=== PATIENT | male | born 1970 | race African-American/Black ===

== ENCOUNTER 2018-05-04 10:22 | Inpatient (IN) ==
[2018-05-04 11:18] LABS: Apearance,Urine CLOUDY (Clear); Bacteria,Urine Many /HPF (Few); Bilirubin,Urine Negative (Negative); Blood, Urine Small mg/dL (Negative); Glucose,Urine (UA) Negative (Negative); Ketones,Urine Negative (Negative); Mucus,Urine Occasional /LPF (Occasional); Nitrite,Urine Positive (Negative); Protein,Urine 30 MG/DL; RBC,Urine 4 /HPF (0-4); Squamous Epithelial Cell,Urine Occasional /HPF (0-10); Urine Color Amber (Yellow); Urine Specific Gravity 1.017 (1.001-1.035); Urine Urobilinogen < 2.0 EU/DL (0.2-1.0); WBC,Urine 159 /HPF (0-6)
[2018-05-04] MEDS ORDERED: PIPERACILLIN/TAZOBACTAM 3,375 MG in SODIUM CHLORIDE 0.9% 100 ML IV STA (13:01)
[2018-05-04] MEDS ORDERED: PIPERACILLIN/TAZOBACTAM 3,375 MG VIAL IV ONE (13:13)
[2018-05-04 13:32] LABS: Basophils % 0.2 % (0.0-0.8); Hematocrit 42.5 VOL% (42.0-52.0); Hemoglobin 14.3 GM/DL (14.0-18.0); Immature Granulocytes % 0.5 %; Immature Granulocytes Absolute 0.07 #; Lymphocytes # 1.4 10*3/uL (1.4-4.0); Lymphocytes % 9.5 % (21.2-54.2); Mean Corpuscular HGB Conc 33.6 GM/DL (32-36); Mean Corpuscular Hemoglobin 30 PG (27-34); Mean Corpuscular Volume 88.5 FL (87-102); Mean Platelet Volume 12.1 FL (9.6-12.0); Monocytes # 1.5 10*3/uL (0.11-0.8); Monocytes % 10.7 % (1.7-12.7); Neutrophils # 11.4 10*3/uL (1.4-7.4); Neutrophils % 79.1 % (38.7-73.9); Platelet Count 107 T/CUMM (130-400); White Blood Count 14.4 T/CUMM (4-12)
[2018-05-04 13:52] LABS: Albumin 3.1 G/DL (3.4-5.0); Bilirubin,Total 0.8 MG/DL (0.2-1.0); Calcium 8.1 MG/DL (8.5-10.1); Osmolality,Calculated 268.2 MOS/KG (273-304); Potassium 3.9 MMOL/L (3.5-5.1); Total Protein 6.9 G/DL (6.4-8.3)
[2018-05-04] MEDS ORDERED: guaiFENesin/DM ER 600-30 MG TABLET PO PRN (14:24)
[2018-05-04] MEDS ORDERED: diphenhydrAMINE CAP 25 MG CAPSULE PO PRN (14:24)
[2018-05-04] MEDS ORDERED: ONDANSETRON 4 MG/2 ML VIAL IV PRN (14:24)
[2018-05-04] MEDS ORDERED: SODIUM CHLORIDE 0.9% 2,950 ML IV ONE ×2 (14:28→14:45)
[2018-05-04] MEDS ORDERED: LEVOFLOXACIN INJ 500 MG in PREMIX 1 EACH IV SCH (14:28)
[2018-05-04] MEDS ORDERED: SODIUM CHLORIDE 0.9% 1,000 ML IV SCH (14:30)
[2018-05-04 14:37] LABS: Sedimentation Rate-Westergren 23 MM/HR (0-15)
[2018-05-04 15:46] LABS: Thyroid Stimulating Hormone 0.799 uIU/ml (0.358-3.74)
[2018-05-04 16:16] LABS: INR 1.2; Partial Thromboplastin Time 33.8 SECS (0-40)
[2018-05-04] MEDS: ACETAMINOPHEN 325 MG TABLET PO PRN (17:41)
[2018-05-04] MEDS: GENTAMICIN INJ 420 MG in SODIUM CHLORIDE 0.9% 100 ML IV SCH (18:47)
[2018-05-04] MEDS: SODIUM CHLORIDE 0.9% 1,000 ML IV SCH (19:02)
[2018-05-04] MEDS ORDERED: hydrOXYzine HCL 25 MG TABLET PO PRN (20:25)
[2018-05-04] MEDS ORDERED: ONDANSETRON ODT 4 MG TABLET PO PRN ×2 (20:25)
[2018-05-04] MEDS: PIPERACILLIN/TAZOBACTAM 3,375 MG in SODIUM CHLORIDE 0.9% 100 ML IV SCH (20:58)
[2018-05-04] MEDS: DOCUSATE SODIUM 100 MG CAPSULE PO SCH (20:59)
[2018-05-04] MEDS ORDERED: SULINDAC 200 MG TABLET PO SCH ×2 (21:00)
[2018-05-04] MEDS: METOPROLOL SUCCINATE XL 50 MG TABLET PO SCH (21:00)
[2018-05-04] MEDS: BACLOFEN 10 MG TABLET PO SCH ×2 (21:00→21:01)
[2018-05-04] MEDS: traMADol 50 MG TABLET PO SCH (21:00)
[2018-05-04] MEDS: DIAZEPAM 5 MG TABLET PO SCH (21:00)
[2018-05-04] MEDS: GABAPENTIN 300 MG CAPSULE PO SCH (21:00)
[2018-05-04] MEDS: LOVASTATIN 20 MG TABLET PO SCH (21:00)
[2018-05-04] MEDS ORDERED: [UNRECOGNIZED DRUG - OTHER] PO SCH (21:00)
[2018-05-04] MEDS: MULTIVITAMIN (CENTRUM) TABLET PO SCH (21:01)
[2018-05-04] MEDS: QUEtiapine 100 MG TABLET PO SCH (21:01)
[2018-05-04] MEDS: SERTRALINE 100 MG TABLET PO SCH (21:01)
[2018-05-05] MEDS: PRAZOSIN 1 MG CAPSULE PO SCH ×2 (01:02→21:28)
[2018-05-05 05:46] LABS: Basophils % 0.3 % (0.0-0.8); Hematocrit 40.1 VOL% (42.0-52.0); Hemoglobin 13.3 GM/DL (14.0-18.0); Immature Granulocytes % 0.5 %; Immature Granulocytes Absolute 0.06 #; Lymphocytes # 1.2 10*3/uL (1.4-4.0); Lymphocytes % 10.4 % (21.2-54.2); Mean Corpuscular HGB Conc 33.2 GM/DL (32-36); Mean Corpuscular Hemoglobin 30 PG (27-34); Mean Corpuscular Volume 89.5 FL (87-102); Mean Platelet Volume 12.2 FL (9.6-12.0); Monocytes # 1.7 10*3/uL (0.11-0.8); Neutrophils # 8.9 10*3/uL (1.4-7.4); Neutrophils % 74.8 % (38.7-73.9); Red Blood Count 4.48 MC/CUMM (3.8-5.5); White Blood Count 11.8 T/CUMM (4-12)
[2018-05-05 05:51] LABS: Platelet Count 99 T/CUMM (130-400)
[2018-05-05] MEDS: PIPERACILLIN/TAZOBACTAM 3,375 MG in SODIUM CHLORIDE 0.9% 100 ML IV SCH ×3 (05:55→21:32)
[2018-05-05] MEDS: SODIUM CHLORIDE 0.9% 1,000 ML IV SCH ×2 (06:03→14:33)
[2018-05-05 06:16] LABS: Albumin 2.8 G/DL (3.4-5.0); Bilirubin,Total 0.8 MG/DL (0.2-1.0); Calcium 7.8 MG/DL (8.5-10.1); Osmolality,Calculated 276.4 MOS/KG (273-304); Potassium 3.6 MMOL/L (3.5-5.1); Risk Ratio 2.93; Total Protein 6.5 G/DL (6.4-8.3)
[2018-05-05] MEDS: oxyCODONE/ACETAMINOPHEN 5-325 MG TABLET PO PRN (06:40)
[2018-05-05] MEDS: DOCUSATE SODIUM 100 MG CAPSULE PO SCH ×2 (09:58→21:30)
[2018-05-05] MEDS: GABAPENTIN 300 MG CAPSULE PO SCH ×4 (09:58→21:29)
[2018-05-05] MEDS: DIAZEPAM 5 MG TABLET PO SCH ×2 (09:58→21:30)
[2018-05-05] MEDS: buPROPion SR 150 MG TABLET PO SCH (09:59)
[2018-05-05] MEDS: LORATADINE 10 MG TABLET PO SCH (09:59)
[2018-05-05] MEDS: BACLOFEN 10 MG TABLET PO SCH ×4 (09:59→21:28)
[2018-05-05] MEDS: traMADol 50 MG TABLET PO SCH ×2 (09:59→21:31)
[2018-05-05] MEDS: PANTOPRAZOLE 40 MG TABLET PO SCH (10:00)
[2018-05-05] MEDS: PSYLLIUM POWDER 3.7 GM/PACK PO SCH (10:00)
[2018-05-05] MEDS: SODIUM CHLORIDE 0.45% 1,000 ML IV SCH (17:51)
[2018-05-05] MEDS: GENTAMICIN INJ 420 MG in SODIUM CHLORIDE 0.9% 100 ML IV SCH (17:52)
[2018-05-05] MEDS: LOVASTATIN 20 MG TABLET PO SCH (21:30)
[2018-05-05] MEDS: METOPROLOL SUCCINATE XL 50 MG TABLET PO SCH (21:31)
[2018-05-05] MEDS: SERTRALINE 100 MG TABLET PO SCH (21:31)
[2018-05-05] MEDS: QUEtiapine 100 MG TABLET PO SCH (21:31)
[2018-05-05] MEDS: MULTIVITAMIN (CENTRUM) TABLET PO SCH (21:33)
[2018-05-06] MEDS: PIPERACILLIN/TAZOBACTAM 3,375 MG in SODIUM CHLORIDE 0.9% 100 ML IV SCH ×2 (04:55→13:22)
[2018-05-06 05:51] LABS: Basophils % 0.4 % (0.0-0.8); Eosinophils # 0.1 10*3/uL (0.0-0.87); Eosinophils % 0.6 % (0.00-10.9); Hematocrit 38.7 VOL% (42.0-52.0); Hemoglobin 13.2 GM/DL (14.0-18.0); Immature Granulocytes % 0.4 %; Immature Granulocytes Absolute 0.03 #; Lymphocytes # 1.3 10*3/uL (1.4-4.0); Lymphocytes % 15.7 % (21.2-54.2); Mean Corpuscular HGB Conc 34.1 GM/DL (32-36); Mean Corpuscular Hemoglobin 30 PG (27-34); Mean Corpuscular Volume 87.2 FL (87-102); Mean Platelet Volume 12.3 FL (9.6-12.0); Monocytes # 1.3 10*3/uL (0.11-0.8); Monocytes % 15.7 % (1.7-12.7); Neutrophils # 5.4 10*3/uL (1.4-7.4); Neutrophils % 67.2 % (38.7-73.9); Platelet Count 95 T/CUMM (130-400); Red Blood Count 4.44 MC/CUMM (3.8-5.5); Red Cell Distribution Width 13.9 % (9.3-17.3)
[2018-05-06 06:07] LABS: Osmolality,Calculated 274.4 MOS/KG (273-304); Potassium 3.6 MMOL/L (3.5-5.1)
[2018-05-06 06:29] LABS: Band Neutrophils 1 % (0-10); Eosinophils 1 % (0-10); Hypochromasia 1+; Lymphocytes 16 % (20-55); Microcytosis Slight; Platelet Estimate Decreased; Segmented Neutrophils 63 % (50-85); Total Cells Counted 100
[2018-05-06] MEDS: SODIUM CHLORIDE 0.45% 1,000 ML IV SCH ×2 (08:56→12:00)
[2018-05-06] MEDS: DIAZEPAM 5 MG TABLET PO SCH ×2 (08:57→21:28)
[2018-05-06] MEDS: traMADol 50 MG TABLET PO SCH ×2 (08:57→21:22)
[2018-05-06] MEDS: PANTOPRAZOLE 40 MG TABLET PO SCH (08:57)
[2018-05-06] MEDS: LORATADINE 10 MG TABLET PO SCH (08:58)
[2018-05-06] MEDS: BACLOFEN 10 MG TABLET PO SCH ×4 (08:58→21:21)
[2018-05-06] MEDS: buPROPion SR 150 MG TABLET PO SCH (08:58)
[2018-05-06] MEDS: DOCUSATE SODIUM 100 MG CAPSULE PO SCH ×2 (08:58→21:20)
[2018-05-06] MEDS: GABAPENTIN 300 MG CAPSULE PO SCH ×4 (08:58→21:14)
[2018-05-06] MEDS: PSYLLIUM POWDER 3.7 GM/PACK PO SCH (08:58)
[2018-05-06] MEDS: cefTRIAXone 1,000 MG in SYRINGE 1 EACH IV SCH (13:25)
[2018-05-06] MEDS: oxyCODONE/ACETAMINOPHEN 5-325 MG TABLET PO PRN (17:00)
[2018-05-06] MEDS: METOPROLOL SUCCINATE XL 50 MG TABLET PO SCH ×2 (17:00→18:04)
[2018-05-06] MEDS: MULTIVITAMIN (CENTRUM) TABLET PO SCH (21:13)
[2018-05-06] MEDS: SERTRALINE 100 MG TABLET PO SCH (21:19)
[2018-05-06] MEDS: PRAZOSIN 1 MG CAPSULE PO SCH (21:20)
[2018-05-06] MEDS: LOVASTATIN 20 MG TABLET PO SCH (21:21)
[2018-05-06] MEDS: QUEtiapine 100 MG TABLET PO SCH (21:21)
[2018-05-07] MEDS: SODIUM CHLORIDE 0.45% 1,000 ML IV SCH (02:54)
[2018-05-07] MEDS: ACETAMINOPHEN 325 MG TABLET PO PRN (06:33)
[2018-05-07 07:07] LABS: Apearance,Urine CLEAR (Clear); Bilirubin,Urine Negative (Negative); Blood, Urine Small mg/dL (Negative); Glucose,Urine (UA) Negative (Negative); Ketones,Urine Negative (Negative); Nitrite,Urine Negative (Negative); Protein,Urine Negative; Urine Color Straw (Yellow); Urine Specific Gravity 1.004 (1.001-1.035); Urine Urobilinogen < 2.0 EU/DL (0.2-1.0); WBC,Urine 1 /HPF (0-6)
[2018-05-07 07:47] VITALS: BP 145/89
[2018-05-07] MEDS: BACLOFEN 10 MG TABLET PO SCH ×2 (09:03→12:44)
[2018-05-07] MEDS: buPROPion SR 150 MG TABLET PO SCH (09:04)
[2018-05-07] MEDS: DIAZEPAM 5 MG TABLET PO SCH (09:04)
[2018-05-07] MEDS: GABAPENTIN 300 MG CAPSULE PO SCH ×2 (09:04→12:44)
[2018-05-07] MEDS: DOCUSATE SODIUM 100 MG CAPSULE PO SCH (09:04)
[2018-05-07] MEDS: PANTOPRAZOLE 40 MG TABLET PO SCH (09:04)
[2018-05-07] MEDS: LORATADINE 10 MG TABLET PO SCH (09:05)
[2018-05-07] MEDS: traMADol 50 MG TABLET PO SCH (09:05)
[2018-05-07] MEDS: PSYLLIUM POWDER 3.7 GM/PACK PO SCH (10:26)
[2018-05-07] MEDS: oxyCODONE/ACETAMINOPHEN 5-325 MG TABLET PO PRN (10:36)
[2018-05-07] MEDS ORDERED: SODIUM PHOSPHATE ENEMA 133 ML BOTTLE RECTAL ONE (11:29)
[2018-05-07] MEDS: cefTRIAXone 1,000 MG in SYRINGE 1 EACH IV SCH (14:42)
== END 2018-05-07 16:16 | disposition home health service (06) | DRG 689 ==
LOC: EDUNIT# → EDBD → N.ED 10:22 → SUATTDRO 14:18 → N.EDINP 14:18 → N.5E 15:41
PROVIDERS: ADMIT Internal Medicine Infectious Disease; ATTEND Internal Medicine

== ENCOUNTER 2021-08-27 15:18 | Inpatient (IN) ==
[2021-08-27 16:39] LABS: Basophils % 0.2 % (0.0-0.8); Eosinophils # 0.1 10*3/uL (0.0-0.87); Eosinophils % 0.6 % (0.00-10.9); Hematocrit 40.3 VOL% (42.0-52.0); Hemoglobin 12.8 GM/DL (14.0-18.0); Immature Granulocytes % 0.5 %; Immature Granulocytes Absolute 0.05 #; Lymphocytes # 0.8 10*3/uL (1.4-4.0); Mean Corpuscular HGB Conc 31.8 GM/DL (32-36); Neutrophils % 81.7 % (38.7-73.9); Platelet Count 166 T/CUMM (130-400); Red Blood Count 4.58 MC/CUMM (3.8-5.5); Red Cell Distribution Width 14.2 % (9.3-17.3); White Blood Count 9.5 T/CUMM (4-12)
[2021-08-27 16:45] LABS: Bacteria,Urine Moderate /HPF (Few); Bilirubin,Urine Negative (Negative); Blood, Urine Small mg/dL (Negative); Glucose,Urine (UA) Negative (Negative); Ketones,Urine Negative (Negative); Mucus,Urine Occasional /LPF (Occasional); Nitrite,Urine Negative (Negative); Protein,Urine Negative; RBC,Urine 7 /HPF (0-4); Squamous Epithelial Cell,Urine Occasional /HPF (0-10); Urine Appearance CLOUDY (Clear); Urine Color Yellow (Yellow); Urine Specific Gravity 1.003 (1.001-1.035); Urine Urobilinogen < 2.0 EU/DL (0.2-1.0)
[2021-08-27 16:53] LABS: Albumin 2.6 G/DL (3.4-5.0); Bilirubin,Total 0.6 MG/DL (0.20-1.00); Calcium 8.2 MG/DL (8.5-10.1); Osmolality,Calculated 280.4 MOS/KG (273-304); Potassium 3.3 MMOL/L (3.5-5.1); Total Protein 6.8 G/DL (6.4-8.2)
[2021-08-27] MEDS ORDERED: cefTRIAXone 1,000 MG in SODIUM CHLORIDE 0.9% 100 ML IV STA (17:58)
[2021-08-27] MEDS ORDERED: MORPHINE 2 MG/1 ML SYRINGE IV PRN (19:02)
[2021-08-27] MEDS ORDERED: ZALEPLON 5 MG CAPSULE PO PRN (19:02)
[2021-08-27] MEDS ORDERED: DEXTROSE 50% 25 GM/50 ML VIAL IV PRN (19:02)
[2021-08-27] MEDS ORDERED: GLUCAGON 1 MG VIAL IM PRN (19:02)
[2021-08-27] MEDS ORDERED: DOCUSATE SODIUM 100 MG CAPSULE PO PRN (19:02)
[2021-08-27] MEDS ORDERED: hydrALAZINE 20 MG/1 ML VIAL IV PRN (19:06)
[2021-08-27] MEDS ORDERED: POTASSIUM CHLORIDE 20 MEQ TABLET PO ONE (19:09)
[2021-08-27] MEDS: SODIUM CHLORIDE 0.9% 1,000 ML IV SCH (21:00)
[2021-08-27] MEDS: AZITHROMYCIN INJ 500 MG in SODIUM CHLORIDE 0.9% 250 ML IV SCH (21:00)
[2021-08-27] MEDS: ENOXAPARIN 40 MG/0.4 ML SYRINGE SUBCUT SCH (21:04)
[2021-08-27] MEDS: ACETAMINOPHEN/CODEINE 300-30 MG TABLET PO PRN (23:53)
[2021-08-28 01:09] LABS: Basophils % 0.1 % (0.0-0.8); Eosinophils % 0.2 % (0.00-10.9); Hematocrit 41.5 VOL% (42.0-52.0); Immature Granulocytes % 0.7 %; Immature Granulocytes Absolute 0.06 #; Lymphocytes # 0.3 10*3/uL (1.4-4.0); Lymphocytes % 3.9 % (21.2-54.2); Mean Corpuscular HGB Conc 31.3 GM/DL (32-36); Mean Corpuscular Volume 89.4 FL (87-102); Mean Platelet Volume 11.2 FL (9.6-12.0); Monocytes % 8.8 % (1.7-12.7); Neutrophils % 86.3 % (38.7-73.9); Platelet Count 135 T/CUMM (130-400); Red Blood Count 4.64 MC/CUMM (3.8-5.5); Red Cell Distribution Width 14.4 % (9.3-17.3); White Blood Count 8.2 T/CUMM (4-12)
[2021-08-28 01:31] LABS: Albumin 2.7 G/DL (3.4-5.0); Calcium 8.8 MG/DL (8.5-10.1); Osmolality,Calculated 276.7 MOS/KG (273-304); Potassium 3.7 MMOL/L (3.5-5.1); Risk Ratio 3.18; Total Protein 7.7 G/DL (6.4-8.2); VLDL Cholesterol 17.6 MG/DL
[2021-08-28] MEDS: ACETAMINOPHEN 325 MG TABLET PO PRN ×3 (03:24→19:20)
[2021-08-28 04:23] LABS: Band Neutrophils 5 % (0-10); Eosinophils 1 % (0-10); Lymphocytes 2 % (20-55); Segmented Neutrophils 85 % (50-85); Total Cells Counted 100
[2021-08-28 04:24] LABS: Hypochromasia 1+; Microcytosis 1+
[2021-08-28 04:25] LABS: Platelet Estimate Adequate
[2021-08-28] MEDS: PANTOPRAZOLE 40 MG TABLET PO SCH (08:57)
[2021-08-28] MEDS: ONDANSETRON 4 MG/2 ML VIAL IV PRN (09:05)
[2021-08-28] MEDS: SODIUM CHLORIDE 0.9% 1,000 ML IV SCH (10:30)
[2021-08-28] MEDS ORDERED: SODIUM PHOSPHATE ENEMA 133 ML BOTTLE RECTAL ONE ×2 (13:30→14:30)
[2021-08-28] MEDS: DIAZEPAM 5 MG TABLET PO SCH ×2 (14:40→21:42)
[2021-08-28] MEDS: DIVALPROEX ER 250 MG TABLET PO SCH ×2 (14:40→21:41)
[2021-08-28] MEDS: BACLOFEN 10 MG TABLET PO SCH ×3 (14:41→21:42)
[2021-08-28] MEDS: OXYBUTYNIN XL 10 MG TABLET PO SCH (14:43)
[2021-08-28] MEDS: DULoxetine 30 MG CAPSULE PO SCH (14:43)
[2021-08-28] MEDS: GABAPENTIN 300 MG CAPSULE PO SCH ×3 (14:44→21:41)
[2021-08-28] MEDS: ENOXAPARIN 40 MG/0.4 ML SYRINGE SUBCUT SCH (18:45)
[2021-08-28] MEDS: AZITHROMYCIN INJ 500 MG in SODIUM CHLORIDE 0.9% 250 ML IV SCH (18:45)
[2021-08-28] MEDS ORDERED: cefTRIAXone 1,000 MG in SODIUM CHLORIDE 0.9% 100 ML IV SCH (19:00)
[2021-08-28] MEDS: DOCUSATE SODIUM 100 MG CAPSULE PO SCH (21:42)
[2021-08-28] MEDS: SIMVASTATIN 10 MG TABLET PO SCH (21:42)
[2021-08-28] MEDS: PIPERACILLIN/TAZOBACTAM 3,375 MG in SODIUM CHLORIDE 0.9% 100 ML IV SCH (21:55)
[2021-08-28] MEDS: ACETAMINOPHEN/CODEINE 300-30 MG TABLET PO PRN (22:30)
[2021-08-28] MEDS: LURASIDONE 120 MG PO SCH (22:38)
[2021-08-29] MEDS: PIPERACILLIN/TAZOBACTAM 3,375 MG in SODIUM CHLORIDE 0.9% 100 ML IV SCH ×3 (04:49→21:39)
[2021-08-29] MEDS: ACETAMINOPHEN 325 MG TABLET PO PRN ×2 (04:51→12:28)
[2021-08-29 06:19] LABS: Basophils % 0.2 % (0.0-0.8); Eosinophils # 0.1 10*3/uL (0.0-0.87); Eosinophils % 0.9 % (0.00-10.9); Hematocrit 36.8 VOL% (42.0-52.0); Hemoglobin 11.8 GM/DL (14.0-18.0); Immature Granulocytes % 0.5 %; Immature Granulocytes Absolute 0.04 #; Lymphocytes # 0.9 10*3/uL (1.4-4.0); Lymphocytes % 10.7 % (21.2-54.2); Mean Corpuscular HGB Conc 32.1 GM/DL (32-36); Mean Corpuscular Volume 90.2 FL (87-102); Monocytes % 13.8 % (1.7-12.7); Neutrophils % 73.9 % (38.7-73.9); Platelet Count 154 T/CUMM (130-400); Red Blood Count 4.08 MC/CUMM (3.8-5.5); Red Cell Distribution Width 14.6 % (9.3-17.3); White Blood Count 8.1 T/CUMM (4-12)
[2021-08-29 06:34] LABS: Calcium 8.4 MG/DL (8.5-10.1); Osmolality,Calculated 273.7 MOS/KG (273-304); Potassium 3.4 MMOL/L (3.5-5.1)
[2021-08-29 06:45] LABS: Band Neutrophils 5 % (0-10); Eosinophils 1 % (0-10); Hypochromasia 1+; Lymphocytes 11 % (20-55); Segmented Neutrophils 64 % (50-85); Total Cells Counted 100
[2021-08-29 06:46] LABS: Microcytosis 1+; Platelet Estimate Adequate
[2021-08-29] MEDS: DIAZEPAM 5 MG TABLET PO SCH ×2 (08:38→21:38)
[2021-08-29] MEDS: PANTOPRAZOLE 40 MG TABLET PO SCH (08:38)
[2021-08-29] MEDS: POTASSIUM CHLORIDE 20 MEQ TABLET PO PRN ×3 (08:38→14:28)
[2021-08-29] MEDS: GABAPENTIN 300 MG CAPSULE PO SCH ×4 (08:38→21:39)
[2021-08-29] MEDS: BACLOFEN 10 MG TABLET PO SCH ×4 (08:38→21:39)
[2021-08-29] MEDS: OXYBUTYNIN XL 10 MG TABLET PO SCH (08:38)
[2021-08-29] MEDS: DIVALPROEX ER 250 MG TABLET PO SCH ×3 (08:38→21:45)
[2021-08-29] MEDS: DULoxetine 30 MG CAPSULE PO SCH (08:38)
[2021-08-29] MEDS: DOCUSATE SODIUM 100 MG CAPSULE PO SCH ×2 (08:39→21:39)
[2021-08-29] MEDS: LORATADINE 10 MG TABLET PO SCH (08:39)
[2021-08-29] MEDS: POLYETHYLENE GLYCOL POWDER 17 GM PACK PO SCH (16:43)
[2021-08-29] MEDS: MAGNESIUM HYDROXIDE SUSP 30 ML UDCUP PO PRN (16:43)
[2021-08-29] MEDS: ACETAMINOPHEN/CODEINE 300-30 MG TABLET PO PRN (21:39)
[2021-08-29] MEDS: SIMVASTATIN 10 MG TABLET PO SCH (21:39)
[2021-08-29] MEDS: ENOXAPARIN 40 MG/0.4 ML SYRINGE SUBCUT SCH (21:45)
[2021-08-29] MEDS: LURASIDONE 120 MG PO SCH (22:57)
[2021-08-30] MEDS: PIPERACILLIN/TAZOBACTAM 3,375 MG in SODIUM CHLORIDE 0.9% 100 ML IV SCH ×2 (04:00→12:22)
[2021-08-30 05:53] LABS: Basophils % 0.3 % (0.0-0.8); Eosinophils # 0.1 10*3/uL (0.0-0.87); Eosinophils % 1.2 % (0.00-10.9); Hematocrit 38.1 VOL% (42.0-52.0); Hemoglobin 12.4 GM/DL (14.0-18.0); Immature Granulocytes % 0.6 %; Immature Granulocytes Absolute 0.06 #; Lymphocytes # 1.3 10*3/uL (1.4-4.0); Lymphocytes % 13.4 % (21.2-54.2); Mean Corpuscular HGB Conc 32.5 GM/DL (32-36); Mean Platelet Volume 10.9 FL (9.6-12.0); Monocytes % 14.1 % (1.7-12.7); Neutrophils % 70.4 % (38.7-73.9); Platelet Count 173 T/CUMM (130-400); Red Blood Count 4.28 MC/CUMM (3.8-5.5); Red Cell Distribution Width 14.6 % (9.3-17.3); White Blood Count 9.5 T/CUMM (4-12)
[2021-08-30 07:07] LABS: Calcium 8.6 MG/DL (8.5-10.1); Osmolality,Calculated 270.8 MOS/KG (273-304); Potassium 3.7 MMOL/L (3.5-5.1)
[2021-08-30] MEDS: LORATADINE 10 MG TABLET PO SCH (09:24)
[2021-08-30] MEDS: DIVALPROEX ER 250 MG TABLET PO SCH ×3 (09:25→21:31)
[2021-08-30] MEDS: DULoxetine 30 MG CAPSULE PO SCH (09:25)
[2021-08-30] MEDS: DIAZEPAM 5 MG TABLET PO SCH ×2 (09:25→21:32)
[2021-08-30] MEDS: PANTOPRAZOLE 40 MG TABLET PO SCH (09:25)
[2021-08-30] MEDS: POLYETHYLENE GLYCOL POWDER 17 GM PACK PO SCH (09:25)
[2021-08-30] MEDS: DOCUSATE SODIUM 100 MG CAPSULE PO SCH ×2 (09:25→21:32)
[2021-08-30] MEDS: OXYBUTYNIN XL 10 MG TABLET PO SCH (09:25)
[2021-08-30] MEDS: GABAPENTIN 300 MG CAPSULE PO SCH ×4 (09:25→21:31)
[2021-08-30] MEDS: BACLOFEN 10 MG TABLET PO SCH ×4 (09:25→21:32)
[2021-08-30] MEDS ORDERED: INFLUENZA VIRUS VACCINE 0.5 ML SYRINGE IM ONE (09:44)
[2021-08-30] MEDS ORDERED: MORPHINE 2 MG/1 ML SYRINGE IV PRN (10:22)
[2021-08-30 11:15] LABS: INR 1.2
[2021-08-30] MEDS: VANCOMYCIN INJ 1,500 MG in SODIUM CHLORIDE 0.9% 500 ML IV SCH (12:22)
[2021-08-30] MEDS: ACETAMINOPHEN 325 MG TABLET PO PRN (17:21)
[2021-08-30] MEDS: SIMVASTATIN 10 MG TABLET PO SCH (21:31)
[2021-08-30] MEDS: LURASIDONE 120 MG PO SCH (21:33)
[2021-08-30 22:01] LABS: Cholesterol Crystals None Seen /LPF
[2021-08-30] MEDS: ACETAMINOPHEN/CODEINE 300-30 MG TABLET PO PRN (22:24)
[2021-08-31] MEDS: PIPERACILLIN/TAZOBACTAM 3,375 MG in SODIUM CHLORIDE 0.9% 100 ML IV SCH ×4 (01:45→20:56)
[2021-08-31 05:16] LABS: Basophils % 0.2 % (0.0-0.8); Eosinophils # 0.1 10*3/uL (0.0-0.87); Eosinophils % 0.8 % (0.00-10.9); Hematocrit 37.7 VOL% (42.0-52.0); Immature Granulocytes % 1.1 %; Lymphocytes # 1.3 10*3/uL (1.4-4.0); Lymphocytes % 13.8 % (21.2-54.2); Mean Corpuscular HGB Conc 31.8 GM/DL (32-36); Mean Corpuscular Volume 87.7 FL (87-102); Mean Platelet Volume 10.8 FL (9.6-12.0); Monocytes % 10.9 % (1.7-12.7); Neutrophils % 73.2 % (38.7-73.9); Platelet Count 181 T/CUMM (130-400); Red Cell Distribution Width 14.6 % (9.3-17.3); White Blood Count 9.1 T/CUMM (4-12)
[2021-08-31 05:39] LABS: Calcium 8.3 MG/DL (8.5-10.1); Osmolality,Calculated 271.7 MOS/KG (273-304); Potassium 3.4 MMOL/L (3.5-5.1)
[2021-08-31] MEDS: VANCOMYCIN INJ 1,500 MG in SODIUM CHLORIDE 0.9% 500 ML IV SCH ×2 (06:21→17:32)
[2021-08-31] MEDS: LORATADINE 10 MG TABLET PO SCH (08:47)
[2021-08-31] MEDS: BACLOFEN 10 MG TABLET PO SCH ×4 (08:47→21:46)
[2021-08-31] MEDS: PANTOPRAZOLE 40 MG TABLET PO SCH (08:47)
[2021-08-31] MEDS: DULoxetine 30 MG CAPSULE PO SCH (08:47)
[2021-08-31] MEDS: DIVALPROEX ER 250 MG TABLET PO SCH ×3 (08:47→21:45)
[2021-08-31] MEDS: OXYBUTYNIN XL 10 MG TABLET PO SCH (08:47)
[2021-08-31] MEDS: DIAZEPAM 5 MG TABLET PO SCH ×2 (08:47→21:46)
[2021-08-31] MEDS: DOCUSATE SODIUM 100 MG CAPSULE PO SCH ×2 (08:47→21:45)
[2021-08-31] MEDS: GABAPENTIN 300 MG CAPSULE PO SCH ×4 (08:47→21:46)
[2021-08-31] MEDS: MORPHINE 2 MG/1 ML SYRINGE IV PRN (08:48)
[2021-08-31] MEDS: POLYETHYLENE GLYCOL POWDER 17 GM PACK PO SCH (08:48)
[2021-08-31] MEDS: POTASSIUM CHLORIDE 20 MEQ TABLET PO PRN ×2 (12:18→14:00)
[2021-08-31] MEDS: NYSTATIN 500,000 UNIT/5 ML UDCUP SWISH/SWAL SCH ×3 (14:10→21:44)
[2021-08-31] MEDS: ACETAMINOPHEN 325 MG TABLET PO PRN (15:47)
[2021-08-31] MEDS: ONDANSETRON 4 MG/2 ML VIAL IV PRN (21:00)
[2021-08-31] MEDS: MAGNESIUM HYDROXIDE SUSP 30 ML UDCUP PO PRN (21:44)
[2021-08-31] MEDS: SIMVASTATIN 10 MG TABLET PO SCH (21:45)
[2021-09-01] MEDS: LURASIDONE 120 MG PO SCH ×2 (01:26→21:26)
[2021-09-01] MEDS: ACETAMINOPHEN 325 MG TABLET PO PRN (01:48)
[2021-09-01] MEDS: PIPERACILLIN/TAZOBACTAM 3,375 MG in SODIUM CHLORIDE 0.9% 100 ML IV SCH ×3 (03:00→20:16)
[2021-09-01] MEDS: ONDANSETRON 4 MG/2 ML VIAL IV PRN (04:55)
[2021-09-01] MEDS: VANCOMYCIN INJ 1,500 MG in SODIUM CHLORIDE 0.9% 500 ML IV SCH ×2 (06:30→18:13)
[2021-09-01 06:32] LABS: Basophils # 0.1 10*3/uL (0.0-0.2); Basophils % 0.5 % (0.0-0.8); Eosinophils # 0.1 10*3/uL (0.0-0.87); Eosinophils % 0.5 % (0.00-10.9); Hematocrit 41.6 VOL% (42.0-52.0); Hemoglobin 13.4 GM/DL (14.0-18.0); Immature Granulocytes Absolute 0.26 #; Lymphocytes # 1.5 10*3/uL (1.4-4.0); Lymphocytes % 11.1 % (21.2-54.2); Mean Corpuscular HGB Conc 32.2 GM/DL (32-36); Mean Corpuscular Volume 88.5 FL (87-102); Mean Platelet Volume 10.6 FL (9.6-12.0); Monocytes % 8.1 % (1.7-12.7); Neutrophils % 77.8 % (38.7-73.9); Platelet Count 253 T/CUMM (130-400); Red Cell Distribution Width 14.6 % (9.3-17.3)
[2021-09-01 07:02] LABS: Calcium 8.7 MG/DL (8.5-10.1); Potassium 3.5 MMOL/L (3.5-5.1)
[2021-09-01] MEDS: POLYETHYLENE GLYCOL POWDER 17 GM PACK PO SCH (09:45)
[2021-09-01] MEDS: DIAZEPAM 5 MG TABLET PO SCH ×2 (09:46→21:24)
[2021-09-01] MEDS: NYSTATIN 500,000 UNIT/5 ML UDCUP SWISH/SWAL SCH ×4 (09:46→21:24)
[2021-09-01] MEDS: DIVALPROEX ER 250 MG TABLET PO SCH ×3 (09:46→21:25)
[2021-09-01] MEDS: OXYBUTYNIN XL 10 MG TABLET PO SCH (09:46)
[2021-09-01] MEDS: DULoxetine 30 MG CAPSULE PO SCH (09:46)
[2021-09-01] MEDS: GABAPENTIN 300 MG CAPSULE PO SCH ×4 (09:46→21:25)
[2021-09-01] MEDS: PANTOPRAZOLE 40 MG TABLET PO SCH (09:46)
[2021-09-01] MEDS: BACLOFEN 10 MG TABLET PO SCH ×4 (09:46→21:25)
[2021-09-01] MEDS: DOCUSATE SODIUM 100 MG CAPSULE PO SCH ×2 (09:47→21:25)
[2021-09-01] MEDS: LORATADINE 10 MG TABLET PO SCH (09:47)
[2021-09-01] MEDS ORDERED: FUROSEMIDE 40 MG/4 ML VIAL IV ONE (10:15)
[2021-09-01] MEDS: SIMVASTATIN 10 MG TABLET PO SCH (21:24)
[2021-09-01] MEDS: DOCUSATE RECTAL SCH (22:55)
[2021-09-01] MEDS: POTASSIUM CHLORIDE INJ 30 MEQ in DEXTROSE 5% NACL 0.45% 1,000 ML IV SCH (23:55)
[2021-09-02] MEDS: PIPERACILLIN/TAZOBACTAM 3,375 MG in SODIUM CHLORIDE 0.9% 100 ML IV SCH ×3 (03:04→21:36)
[2021-09-02 04:52] LABS: Basophils % 0.2 % (0.0-0.8); Eosinophils # 0.2 10*3/uL (0.0-0.87); Eosinophils % 1.5 % (0.00-10.9); Hematocrit 37.6 VOL% (42.0-52.0); Hemoglobin 11.7 GM/DL (14.0-18.0); Immature Granulocytes % 1.9 %; Immature Granulocytes Absolute 0.23 #; Lymphocytes # 1.2 10*3/uL (1.4-4.0); Lymphocytes % 9.7 % (21.2-54.2); Mean Corpuscular HGB Conc 31.1 GM/DL (32-36); Mean Corpuscular Volume 90.2 FL (87-102); Mean Platelet Volume 10.4 FL (9.6-12.0); Monocytes % 6.8 % (1.7-12.7); Neutrophils % 79.9 % (38.7-73.9); Platelet Count 235 T/CUMM (130-400); Red Blood Count 4.17 MC/CUMM (3.8-5.5); Red Cell Distribution Width 14.6 % (9.3-17.3); White Blood Count 12.2 T/CUMM (4-12)
[2021-09-02 05:24] LABS: Calcium 8.5 MG/DL (8.5-10.1); Potassium 3.8 MMOL/L (3.5-5.1)
[2021-09-02 05:51] LABS: Osmolality,Calculated 278.5 MOS/KG (273-304)
[2021-09-02] MEDS: VANCOMYCIN INJ 1,500 MG in SODIUM CHLORIDE 0.9% 500 ML IV SCH ×2 (06:51→18:52)
[2021-09-02] MEDS: LORATADINE 10 MG TABLET PO SCH (09:47)
[2021-09-02] MEDS: DOCUSATE SODIUM 100 MG CAPSULE PO SCH ×2 (09:50→21:34)
[2021-09-02] MEDS: NYSTATIN 500,000 UNIT/5 ML UDCUP SWISH/SWAL SCH ×4 (09:51→21:34)
[2021-09-02] MEDS: FUROSEMIDE 40 MG/4 ML VIAL IV SCH ×2 (10:00→10:30)
[2021-09-02] MEDS: DULoxetine 30 MG CAPSULE PO SCH (10:19)
[2021-09-02] MEDS: BACLOFEN 10 MG TABLET PO SCH ×4 (10:21→21:35)
[2021-09-02] MEDS: GABAPENTIN 300 MG CAPSULE PO SCH ×4 (10:21→21:34)
[2021-09-02] MEDS: PANTOPRAZOLE 40 MG TABLET PO SCH (10:21)
[2021-09-02] MEDS: OXYBUTYNIN XL 10 MG TABLET PO SCH (11:11)
[2021-09-02] MEDS: DIVALPROEX ER 250 MG TABLET PO SCH ×3 (11:11→21:35)
[2021-09-02] MEDS: POLYETHYLENE GLYCOL POWDER 17 GM PACK PO SCH (11:12)
[2021-09-02] MEDS: DIAZEPAM 5 MG TABLET PO SCH ×2 (11:12→21:35)
[2021-09-02] MEDS: ONDANSETRON 4 MG/2 ML VIAL IV PRN (11:28)
[2021-09-02] MEDS: MORPHINE 2 MG/1 ML SYRINGE IV PRN ×2 (11:43→14:28)
[2021-09-02] MEDS: LURASIDONE 120 MG PO SCH (21:36)
[2021-09-02] MEDS: SIMVASTATIN 10 MG TABLET PO SCH (21:36)
[2021-09-03] MEDS: PIPERACILLIN/TAZOBACTAM 3,375 MG in SODIUM CHLORIDE 0.9% 100 ML IV SCH ×3 (03:38→20:33)
[2021-09-03 05:31] LABS: Basophils # 0.1 10*3/uL (0.0-0.2); Basophils % 0.6 % (0.0-0.8); Eosinophils # 0.2 10*3/uL (0.0-0.87); Eosinophils % 2.3 % (0.00-10.9); Hematocrit 40.6 VOL% (42.0-52.0); Hemoglobin 12.7 GM/DL (14.0-18.0); Immature Granulocytes % 1.6 %; Immature Granulocytes Absolute 0.14 #; Lymphocytes # 0.8 10*3/uL (1.4-4.0); Lymphocytes % 8.5 % (21.2-54.2); Mean Corpuscular HGB Conc 31.3 GM/DL (32-36); Mean Corpuscular Volume 91.6 FL (87-102); Mean Platelet Volume 10.4 FL (9.6-12.0); Monocytes % 6.5 % (1.7-12.7); Neutrophils % 80.5 % (38.7-73.9); Platelet Count 231 T/CUMM (130-400); Red Blood Count 4.43 MC/CUMM (3.8-5.5); Red Cell Distribution Width 14.4 % (9.3-17.3); White Blood Count 8.9 T/CUMM (4-12)
[2021-09-03 05:48] LABS: Calcium 8.6 MG/DL (8.5-10.1); Osmolality,Calculated 280.3 MOS/KG (273-304); Potassium 4.2 MMOL/L (3.5-5.1)
[2021-09-03] MEDS: POTASSIUM CHLORIDE INJ 30 MEQ in DEXTROSE 5% NACL 0.45% 1,000 ML IV SCH ×2 (06:04→16:12)
[2021-09-03] MEDS: VANCOMYCIN INJ 1,500 MG in SODIUM CHLORIDE 0.9% 500 ML IV SCH ×2 (06:59→18:05)
[2021-09-03] MEDS: LORATADINE 10 MG TABLET PO SCH (08:32)
[2021-09-03] MEDS: DIVALPROEX ER 250 MG TABLET PO SCH ×3 (08:32→20:34)
[2021-09-03] MEDS: OXYBUTYNIN XL 10 MG TABLET PO SCH (08:32)
[2021-09-03] MEDS: DULoxetine 30 MG CAPSULE PO SCH (08:32)
[2021-09-03] MEDS: DOCUSATE SODIUM 100 MG/10 ML UDCUP PO SCH ×2 (08:32→20:33)
[2021-09-03] MEDS: DIAZEPAM 5 MG TABLET PO SCH ×2 (08:33→20:35)
[2021-09-03] MEDS: GABAPENTIN 300 MG CAPSULE PO SCH ×4 (08:33→20:35)
[2021-09-03] MEDS: BACLOFEN 10 MG TABLET PO SCH ×4 (08:33→20:35)
[2021-09-03] MEDS: FUROSEMIDE 40 MG/4 ML VIAL IV SCH (08:33)
[2021-09-03] MEDS: POLYETHYLENE GLYCOL POWDER 17 GM PACK PO SCH (08:33)
[2021-09-03] MEDS: NYSTATIN 500,000 UNIT/5 ML UDCUP SWISH/SWAL SCH ×4 (08:33→20:33)
[2021-09-03] MEDS: PANTOPRAZOLE 40 MG TABLET PO SCH (08:33)
[2021-09-03] MEDS: SIMVASTATIN 10 MG TABLET PO SCH (20:33)
[2021-09-03] MEDS: LURASIDONE 120 MG PO SCH (20:37)
[2021-09-04] MEDS: PIPERACILLIN/TAZOBACTAM 3,375 MG in SODIUM CHLORIDE 0.9% 100 ML IV SCH ×3 (03:04→21:44)
[2021-09-04] MEDS: POTASSIUM CHLORIDE INJ 30 MEQ in DEXTROSE 5% NACL 0.45% 1,000 ML IV SCH ×2 (03:07→16:16)
[2021-09-04 05:29] LABS: Basophils % 0.3 % (0.0-0.8); Eosinophils # 0.1 10*3/uL (0.0-0.87); Eosinophils % 1.3 % (0.00-10.9); Hematocrit 36.2 VOL% (42.0-52.0); Hemoglobin 11.4 GM/DL (14.0-18.0); Immature Granulocytes % 1.1 %; Lymphocytes # 0.7 10*3/uL (1.4-4.0); Lymphocytes % 7.5 % (21.2-54.2); Mean Corpuscular HGB Conc 31.5 GM/DL (32-36); Mean Corpuscular Volume 91.2 FL (87-102); Mean Platelet Volume 10.6 FL (9.6-12.0); Monocytes % 6.2 % (1.7-12.7); Neutrophils % 83.6 % (38.7-73.9); Platelet Count 268 T/CUMM (130-400); Red Blood Count 3.97 MC/CUMM (3.8-5.5); Red Cell Distribution Width 14.2 % (9.3-17.3); White Blood Count 9.5 T/CUMM (4-12)
[2021-09-04 05:57] LABS: Calcium 8.4 MG/DL (8.5-10.1); Potassium 3.5 MMOL/L (3.5-5.1)
[2021-09-04] MEDS: VANCOMYCIN INJ 1,500 MG in SODIUM CHLORIDE 0.9% 500 ML IV SCH (06:12)
[2021-09-04] MEDS: FUROSEMIDE 40 MG/4 ML VIAL IV SCH (09:15)
[2021-09-04] MEDS: GABAPENTIN 300 MG CAPSULE PO SCH ×4 (09:16→21:46)
[2021-09-04] MEDS: DULoxetine 30 MG CAPSULE PO SCH (09:16)
[2021-09-04] MEDS: BACLOFEN 10 MG TABLET PO SCH ×4 (09:16→21:46)
[2021-09-04] MEDS: PANTOPRAZOLE 40 MG TABLET PO SCH (09:16)
[2021-09-04] MEDS: OXYBUTYNIN XL 10 MG TABLET PO SCH (09:16)
[2021-09-04] MEDS: DOCUSATE SODIUM 100 MG/10 ML UDCUP PO SCH (09:16)
[2021-09-04] MEDS: DIAZEPAM 5 MG TABLET PO SCH ×2 (09:16→21:47)
[2021-09-04] MEDS: NYSTATIN 500,000 UNIT/5 ML UDCUP SWISH/SWAL SCH ×4 (09:16→21:45)
[2021-09-04] MEDS: POLYETHYLENE GLYCOL POWDER 17 GM PACK PO SCH ×3 (09:16→21:45)
[2021-09-04] MEDS: LORATADINE 10 MG TABLET PO SCH (09:16)
[2021-09-04] MEDS: DIVALPROEX ER 250 MG TABLET PO SCH ×3 (09:16→21:47)
[2021-09-04] MEDS: ONDANSETRON 4 MG/2 ML VIAL IV PRN (09:42)
[2021-09-04] MEDS: DOCUSATE RECTAL SCH (17:45)
[2021-09-04] MEDS: DOCUSATE SODIUM 100 MG CAPSULE PO SCH (21:46)
[2021-09-04] MEDS: SIMVASTATIN 10 MG TABLET PO SCH (21:48)
[2021-09-04] MEDS: POTASSIUM CHLORIDE 20 MEQ TABLET PO PRN (21:51)
[2021-09-04] MEDS: LURASIDONE 120 MG PO SCH (21:52)
[2021-09-05] MEDS: PIPERACILLIN/TAZOBACTAM 3,375 MG in SODIUM CHLORIDE 0.9% 100 ML IV SCH ×3 (05:08→21:35)
[2021-09-05 05:16] LABS: Basophils % 0.4 % (0.0-0.8); Eosinophils # 0.1 10*3/uL (0.0-0.87); Eosinophils % 1.7 % (0.00-10.9); Hematocrit 37.6 VOL% (42.0-52.0); Hemoglobin 11.6 GM/DL (14.0-18.0); Immature Granulocytes % 2.6 %; Lymphocytes # 0.9 10*3/uL (1.4-4.0); Lymphocytes % 11.1 % (21.2-54.2); Mean Corpuscular HGB Conc 30.9 GM/DL (32-36); Mean Corpuscular Volume 91.9 FL (87-102); Mean Platelet Volume 10.2 FL (9.6-12.0); Monocytes % 7.5 % (1.7-12.7); Neutrophils % 76.7 % (38.7-73.9); Platelet Count 290 T/CUMM (130-400); Red Blood Count 4.09 MC/CUMM (3.8-5.5); Red Cell Distribution Width 14.3 % (9.3-17.3); White Blood Count 7.8 T/CUMM (4-12)
[2021-09-05 05:30] LABS: Calcium 8.8 MG/DL (8.5-10.1); Potassium 3.6 MMOL/L (3.5-5.1)
[2021-09-05 06:09] LABS: Osmolality,Calculated 286.7 MOS/KG (273-304)
[2021-09-05] MEDS: POTASSIUM CHLORIDE INJ 30 MEQ in DEXTROSE 5% NACL 0.45% 1,000 ML IV SCH ×2 (06:39→21:46)
[2021-09-05] MEDS: ACETAMINOPHEN 325 MG TABLET PO PRN (08:13)
[2021-09-05] MEDS: POLYETHYLENE GLYCOL POWDER 17 GM PACK PO SCH ×3 (08:13→21:35)
[2021-09-05] MEDS: FUROSEMIDE 40 MG/4 ML VIAL IV SCH (08:13)
[2021-09-05] MEDS: BACLOFEN 10 MG TABLET PO SCH ×4 (08:14→21:33)
[2021-09-05] MEDS: PANTOPRAZOLE 40 MG TABLET PO SCH (08:14)
[2021-09-05] MEDS: NYSTATIN 500,000 UNIT/5 ML UDCUP SWISH/SWAL SCH ×4 (08:14→21:35)
[2021-09-05] MEDS: LINACLOTIDE 145 MCG CAPSULE PO SCH (08:14)
[2021-09-05] MEDS: DOCUSATE SODIUM 100 MG CAPSULE PO SCH ×2 (08:14→21:33)
[2021-09-05] MEDS: LORATADINE 10 MG TABLET PO SCH (08:15)
[2021-09-05] MEDS: GABAPENTIN 300 MG CAPSULE PO SCH ×4 (08:15→21:34)
[2021-09-05] MEDS: DULoxetine 30 MG CAPSULE PO SCH (08:15)
[2021-09-05] MEDS: DIAZEPAM 5 MG TABLET PO SCH ×2 (08:15→21:33)
[2021-09-05] MEDS: DIVALPROEX ER 250 MG TABLET PO SCH ×3 (08:15→21:33)
[2021-09-05] MEDS: OXYBUTYNIN XL 10 MG TABLET PO SCH (08:15)
[2021-09-05] MEDS ORDERED: ENOXAPARIN 40 MG/0.4 ML SYRINGE SUBCUT SCH (10:30)
[2021-09-05] MEDS: SIMVASTATIN 10 MG TABLET PO SCH (21:34)
[2021-09-05] MEDS: LURASIDONE 120 MG PO SCH (21:46)
[2021-09-06] MEDS: LACTULOSE 20 GM/30 ML UDCUP PO SCH ×3 (00:17→14:43)
[2021-09-06] MEDS: PIPERACILLIN/TAZOBACTAM 3,375 MG in SODIUM CHLORIDE 0.9% 100 ML IV SCH ×2 (04:50→21:48)
[2021-09-06 05:33] LABS: Basophils % 0.4 % (0.0-0.8); Eosinophils # 0.1 10*3/uL (0.0-0.87); Eosinophils % 0.6 % (0.00-10.9); Hematocrit 37.7 VOL% (42.0-52.0); Immature Granulocytes % 2.3 %; Immature Granulocytes Absolute 0.24 #; Lymphocytes # 1.2 10*3/uL (1.4-4.0); Lymphocytes % 11.4 % (21.2-54.2); Mean Corpuscular HGB Conc 31.8 GM/DL (32-36); Mean Corpuscular Volume 90.2 FL (87-102); Mean Platelet Volume 10.6 FL (9.6-12.0); Neutrophils % 77.3 % (38.7-73.9); Platelet Count 369 T/CUMM (130-400); Red Blood Count 4.18 MC/CUMM (3.8-5.5); Red Cell Distribution Width 14.3 % (9.3-17.3); White Blood Count 10.2 T/CUMM (4-12)
[2021-09-06 05:59] LABS: Calcium 8.7 MG/DL (8.5-10.1); Osmolality,Calculated 286.7 MOS/KG (273-304); Potassium 3.2 MMOL/L (3.5-5.1)
[2021-09-06] MEDS: BACLOFEN 10 MG TABLET PO SCH ×5 (09:49→21:20)
[2021-09-06] MEDS: OXYBUTYNIN XL 10 MG TABLET PO SCH (09:49)
[2021-09-06] MEDS: DIAZEPAM 5 MG TABLET PO SCH ×2 (09:49→21:19)
[2021-09-06] MEDS: PANTOPRAZOLE 40 MG TABLET PO SCH (09:49)
[2021-09-06] MEDS: DULoxetine 30 MG CAPSULE PO SCH (09:49)
[2021-09-06] MEDS: DIVALPROEX ER 250 MG TABLET PO SCH ×3 (09:49→21:19)
[2021-09-06] MEDS: LORATADINE 10 MG TABLET PO SCH (09:49)
[2021-09-06] MEDS: FUROSEMIDE 40 MG/4 ML VIAL IV SCH (09:50)
[2021-09-06] MEDS: ENOXAPARIN 40 MG/0.4 ML SYRINGE SUBCUT SCH (09:50)
[2021-09-06] MEDS: POTASSIUM CHLORIDE 20 MEQ TABLET PO PRN (09:50)
[2021-09-06] MEDS: POLYETHYLENE GLYCOL POWDER 17 GM PACK PO SCH (09:50)
[2021-09-06] MEDS: NYSTATIN 500,000 UNIT/5 ML UDCUP SWISH/SWAL SCH ×4 (09:50→21:20)
[2021-09-06] MEDS: DOCUSATE SODIUM 100 MG CAPSULE PO SCH (09:50)
[2021-09-06] MEDS: LINACLOTIDE 145 MCG CAPSULE PO SCH (09:51)
[2021-09-06] MEDS: GABAPENTIN 300 MG CAPSULE PO SCH ×4 (10:26→21:20)
[2021-09-06] MEDS ORDERED: POTASSIUM CHLORIDE 20 MEQ TABLET PO ONE (13:15)
[2021-09-06] MEDS: DOCUSATE RECTAL SCH (14:41)
[2021-09-06 19:01] LABS: CDT Result Negative (Negative); CDT Specimen Source STOOL
[2021-09-06] MEDS: SIMVASTATIN 10 MG TABLET PO SCH (21:20)
[2021-09-06] MEDS: LURASIDONE 120 MG PO SCH (21:48)
[2021-09-07] MEDS: PIPERACILLIN/TAZOBACTAM 3,375 MG in SODIUM CHLORIDE 0.9% 100 ML IV SCH ×3 (02:42→17:08)
[2021-09-07] MEDS: POTASSIUM CHLORIDE INJ 30 MEQ in DEXTROSE 5% NACL 0.45% 1,000 ML IV SCH (03:04)
[2021-09-07 05:28] LABS: Basophils % 0.4 % (0.0-0.8); Eosinophils # 0.1 10*3/uL (0.0-0.87); Eosinophils % 0.7 % (0.00-10.9); Hematocrit 39.7 VOL% (42.0-52.0); Hemoglobin 12.6 GM/DL (14.0-18.0); Immature Granulocytes % 2.6 %; Immature Granulocytes Absolute 0.29 #; Lymphocytes # 1.5 10*3/uL (1.4-4.0); Lymphocytes % 13.5 % (21.2-54.2); Mean Corpuscular HGB Conc 31.7 GM/DL (32-36); Mean Corpuscular Volume 89.6 FL (87-102); Mean Platelet Volume 10.3 FL (9.6-12.0); Monocytes % 8.5 % (1.7-12.7); Neutrophils % 74.3 % (38.7-73.9); Platelet Count 404 T/CUMM (130-400); Red Blood Count 4.43 MC/CUMM (3.8-5.5); Red Cell Distribution Width 14.6 % (9.3-17.3); White Blood Count 11.1 T/CUMM (4-12)
[2021-09-07 05:38] LABS: Calcium 8.9 MG/DL (8.5-10.1); Osmolality,Calculated 288.6 MOS/KG (273-304); Potassium 3.5 MMOL/L (3.5-5.1)
[2021-09-07] MEDS: DULoxetine 30 MG CAPSULE PO SCH (10:46)
[2021-09-07] MEDS: DIVALPROEX ER 250 MG TABLET PO SCH ×3 (10:46→20:37)
[2021-09-07] MEDS: GABAPENTIN 300 MG CAPSULE PO SCH ×4 (10:47→20:37)
[2021-09-07] MEDS: OXYBUTYNIN XL 10 MG TABLET PO SCH (10:47)
[2021-09-07] MEDS: PANTOPRAZOLE 40 MG TABLET PO SCH (10:47)
[2021-09-07] MEDS: DIAZEPAM 5 MG TABLET PO SCH ×2 (10:47→20:38)
[2021-09-07] MEDS: LINACLOTIDE 145 MCG CAPSULE PO SCH (10:48)
[2021-09-07] MEDS: BACLOFEN 10 MG TABLET PO SCH ×4 (10:48→20:37)
[2021-09-07] MEDS: LORATADINE 10 MG TABLET PO SCH (10:48)
[2021-09-07] MEDS: ENOXAPARIN 40 MG/0.4 ML SYRINGE SUBCUT SCH (10:49)
[2021-09-07] MEDS: FUROSEMIDE 40 MG/4 ML VIAL IV SCH (10:49)
[2021-09-07] MEDS: NYSTATIN 500,000 UNIT/5 ML UDCUP SWISH/SWAL SCH ×4 (10:50→20:37)
[2021-09-07] MEDS: SIMVASTATIN 10 MG TABLET PO SCH (20:37)
[2021-09-07] MEDS: LURASIDONE 120 MG PO SCH (20:55)
[2021-09-08] MEDS: POTASSIUM CHLORIDE INJ 30 MEQ in DEXTROSE 5% NACL 0.45% 1,000 ML IV SCH (01:27)
[2021-09-08] MEDS: PIPERACILLIN/TAZOBACTAM 3,375 MG in SODIUM CHLORIDE 0.9% 100 ML IV SCH ×2 (02:03→10:16)
[2021-09-08 09:06] LABS: Basophils # 0.1 10*3/uL (0.0-0.2); Basophils % 0.6 % (0.0-0.8); Eosinophils # 0.1 10*3/uL (0.0-0.87); Eosinophils % 1.4 % (0.00-10.9); Hematocrit 39.3 VOL% (42.0-52.0); Hemoglobin 12.6 GM/DL (14.0-18.0); Immature Granulocytes % 2.3 %; Immature Granulocytes Absolute 0.22 #; Lymphocytes # 1.6 10*3/uL (1.4-4.0); Lymphocytes % 16.7 % (21.2-54.2); Mean Corpuscular HGB Conc 32.1 GM/DL (32-36); Mean Corpuscular Volume 89.7 FL (87-102); Mean Platelet Volume 10.2 FL (9.6-12.0); Monocytes % 8.6 % (1.7-12.7); Neutrophils % 70.4 % (38.7-73.9); Platelet Count 421 T/CUMM (130-400); Red Blood Count 4.38 MC/CUMM (3.8-5.5); Red Cell Distribution Width 14.7 % (9.3-17.3); White Blood Count 9.8 T/CUMM (4-12)
[2021-09-08 09:23] LABS: Osmolality,Calculated 285.8 MOS/KG (273-304); Potassium 3.6 MMOL/L (3.5-5.1)
[2021-09-08] MEDS: LINACLOTIDE 145 MCG CAPSULE PO SCH (10:13)
[2021-09-08] MEDS: ENOXAPARIN 40 MG/0.4 ML SYRINGE SUBCUT SCH (10:13)
[2021-09-08] MEDS: DULoxetine 30 MG CAPSULE PO SCH (10:14)
[2021-09-08] MEDS: OXYBUTYNIN XL 10 MG TABLET PO SCH (10:14)
[2021-09-08] MEDS: DIVALPROEX ER 250 MG TABLET PO SCH ×3 (10:14→21:28)
[2021-09-08] MEDS: LORATADINE 10 MG TABLET PO SCH (10:14)
[2021-09-08] MEDS: NYSTATIN 500,000 UNIT/5 ML UDCUP SWISH/SWAL SCH ×4 (10:15→21:28)
[2021-09-08] MEDS: DIAZEPAM 5 MG TABLET PO SCH ×2 (10:15→21:29)
[2021-09-08] MEDS: BACLOFEN 10 MG TABLET PO SCH ×4 (10:15→21:29)
[2021-09-08] MEDS: GABAPENTIN 300 MG CAPSULE PO SCH ×4 (10:15→21:29)
[2021-09-08] MEDS: PANTOPRAZOLE 40 MG TABLET PO SCH (10:15)
[2021-09-08] MEDS: FUROSEMIDE 40 MG/4 ML VIAL IV SCH (10:15)
[2021-09-08] MEDS: DOCUSATE RECTAL SCH (16:38)
[2021-09-08] MEDS: CEFEPIME 2,000 MG in SODIUM CHLORIDE 0.9% 100 ML IV SCH (18:15)
[2021-09-08] MEDS: SIMVASTATIN 10 MG TABLET PO SCH (21:29)
[2021-09-08] MEDS: LURASIDONE 120 MG PO SCH (21:34)
[2021-09-09] MEDS: POTASSIUM CHLORIDE INJ 30 MEQ in DEXTROSE 5% NACL 0.45% 1,000 ML IV SCH ×3 (04:29→22:46)
[2021-09-09 05:21] LABS: Basophils % 0.5 % (0.0-0.8); Eosinophils # 0.1 10*3/uL (0.0-0.87); Eosinophils % 1.5 % (0.00-10.9); Hematocrit 40.1 VOL% (42.0-52.0); Hemoglobin 12.5 GM/DL (14.0-18.0); Immature Granulocytes Absolute 0.22 #; Lymphocytes # 1.6 10*3/uL (1.4-4.0); Lymphocytes % 21.7 % (21.2-54.2); Mean Corpuscular HGB Conc 31.2 GM/DL (32-36); Mean Corpuscular Volume 90.3 FL (87-102); Mean Platelet Volume 10.4 FL (9.6-12.0); Monocytes % 10.1 % (1.7-12.7); Neutrophils % 63.2 % (38.7-73.9); Platelet Count 411 T/CUMM (130-400); Red Blood Count 4.44 MC/CUMM (3.8-5.5); Red Cell Distribution Width 14.6 % (9.3-17.3); White Blood Count 7.3 T/CUMM (4-12)
[2021-09-09 05:48] LABS: Calcium 8.7 MG/DL (8.5-10.1); Osmolality,Calculated 284.1 MOS/KG (273-304); Potassium 3.6 MMOL/L (3.5-5.1)
[2021-09-09] MEDS: CEFEPIME 2,000 MG in SODIUM CHLORIDE 0.9% 100 ML IV SCH ×2 (05:51→19:02)
[2021-09-09] MEDS: DULoxetine 30 MG CAPSULE PO SCH (09:27)
[2021-09-09] MEDS: GABAPENTIN 300 MG CAPSULE PO SCH ×4 (09:28→22:24)
[2021-09-09] MEDS: DIAZEPAM 5 MG TABLET PO SCH ×2 (09:28→22:25)
[2021-09-09] MEDS: BACLOFEN 10 MG TABLET PO SCH ×4 (09:29→22:26)
[2021-09-09] MEDS: NYSTATIN 500,000 UNIT/5 ML UDCUP SWISH/SWAL SCH ×4 (09:33→22:35)
[2021-09-09] MEDS: PANTOPRAZOLE 40 MG TABLET PO SCH (09:33)
[2021-09-09] MEDS: DIVALPROEX ER 250 MG TABLET PO SCH ×3 (09:33→22:23)
[2021-09-09] MEDS: OXYBUTYNIN XL 10 MG TABLET PO SCH (09:33)
[2021-09-09] MEDS: LORATADINE 10 MG TABLET PO SCH (09:33)
[2021-09-09] MEDS: FUROSEMIDE 40 MG/4 ML VIAL IV SCH (09:34)
[2021-09-09] MEDS: LINACLOTIDE 145 MCG CAPSULE PO SCH (09:34)
[2021-09-09] MEDS: ENOXAPARIN 40 MG/0.4 ML SYRINGE SUBCUT SCH (09:35)
[2021-09-09] MEDS: SIMVASTATIN 10 MG TABLET PO SCH (22:28)
[2021-09-09] MEDS: LURASIDONE 120 MG PO SCH (22:30)
[2021-09-10 06:24] LABS: Basophils % 0.4 % (0.0-0.8); Eosinophils # 0.2 10*3/uL (0.0-0.87); Eosinophils % 2.1 % (0.00-10.9); Hematocrit 38.9 VOL% (42.0-52.0); Hemoglobin 11.9 GM/DL (14.0-18.0); Immature Granulocytes % 2.3 %; Immature Granulocytes Absolute 0.19 #; Lymphocytes # 1.6 10*3/uL (1.4-4.0); Lymphocytes % 19.5 % (21.2-54.2); Mean Corpuscular HGB Conc 30.6 GM/DL (32-36); Mean Corpuscular Volume 91.1 FL (87-102); Mean Platelet Volume 10.6 FL (9.6-12.0); Monocytes % 10.6 % (1.7-12.7); Neutrophils % 65.1 % (38.7-73.9); Platelet Count 374 T/CUMM (130-400); Red Blood Count 4.27 MC/CUMM (3.8-5.5); Red Cell Distribution Width 14.7 % (9.3-17.3); White Blood Count 8.1 T/CUMM (4-12)
[2021-09-10] MEDS: CEFEPIME 2,000 MG in SODIUM CHLORIDE 0.9% 100 ML IV SCH ×2 (06:26→17:03)
[2021-09-10 06:43] LABS: Calcium 9.2 MG/DL (8.5-10.1); Osmolality,Calculated 282.3 MOS/KG (273-304); Potassium 4.1 MMOL/L (3.5-5.1)
[2021-09-10] MEDS: ENOXAPARIN 40 MG/0.4 ML SYRINGE SUBCUT SCH (09:01)
[2021-09-10] MEDS: DIAZEPAM 5 MG TABLET PO SCH ×2 (09:01→21:58)
[2021-09-10] MEDS: DIVALPROEX ER 250 MG TABLET PO SCH ×3 (09:01→21:58)
[2021-09-10] MEDS: LINACLOTIDE 145 MCG CAPSULE PO SCH (09:01)
[2021-09-10] MEDS: DULoxetine 30 MG CAPSULE PO SCH (09:01)
[2021-09-10] MEDS: PANTOPRAZOLE 40 MG TABLET PO SCH (09:01)
[2021-09-10] MEDS: BACLOFEN 10 MG TABLET PO SCH ×4 (09:01→21:59)
[2021-09-10] MEDS: FUROSEMIDE 40 MG/4 ML VIAL IV SCH (09:02)
[2021-09-10] MEDS: LORATADINE 10 MG TABLET PO SCH (09:02)
[2021-09-10] MEDS: GABAPENTIN 300 MG CAPSULE PO SCH ×4 (09:02→21:58)
[2021-09-10] MEDS: NYSTATIN 500,000 UNIT/5 ML UDCUP SWISH/SWAL SCH ×4 (09:02→21:59)
[2021-09-10] MEDS: OXYBUTYNIN XL 10 MG TABLET PO SCH (09:06)
[2021-09-10] MEDS: LURASIDONE 120 MG PO SCH (21:59)
[2021-09-10] MEDS: SIMVASTATIN 10 MG TABLET PO SCH (21:59)
[2021-09-11] MEDS: POTASSIUM CHLORIDE INJ 30 MEQ in DEXTROSE 5% NACL 0.45% 1,000 ML IV SCH ×2 (00:39→01:39)
[2021-09-11 05:17] LABS: Basophils % 0.5 % (0.0-0.8); Eosinophils # 0.1 10*3/uL (0.0-0.87); Eosinophils % 1.6 % (0.00-10.9); Hematocrit 39.2 VOL% (42.0-52.0); Hemoglobin 12.1 GM/DL (14.0-18.0); Immature Granulocytes % 1.5 %; Immature Granulocytes Absolute 0.11 #; Lymphocytes # 1.5 10*3/uL (1.4-4.0); Lymphocytes % 20.2 % (21.2-54.2); Mean Corpuscular HGB Conc 30.9 GM/DL (32-36); Mean Corpuscular Volume 92.5 FL (87-102); Mean Platelet Volume 10.4 FL (9.6-12.0); Monocytes % 10.8 % (1.7-12.7); Neutrophils % 65.4 % (38.7-73.9); Platelet Count 340 T/CUMM (130-400); Red Blood Count 4.24 MC/CUMM (3.8-5.5); Red Cell Distribution Width 14.6 % (9.3-17.3); White Blood Count 7.4 T/CUMM (4-12)
[2021-09-11 05:46] LABS: Calcium 9.4 MG/DL (8.5-10.1); Osmolality,Calculated 280.4 MOS/KG (273-304); Potassium 4.2 MMOL/L (3.5-5.1)
[2021-09-11] MEDS: CEFEPIME 2,000 MG in SODIUM CHLORIDE 0.9% 100 ML IV SCH (06:38)
[2021-09-11] MEDS: GABAPENTIN 300 MG CAPSULE PO SCH (08:33)
[2021-09-11] MEDS: PANTOPRAZOLE 40 MG TABLET PO SCH (08:33)
[2021-09-11] MEDS: NYSTATIN 500,000 UNIT/5 ML UDCUP SWISH/SWAL SCH (08:33)
[2021-09-11] MEDS: OXYBUTYNIN XL 10 MG TABLET PO SCH (08:33)
[2021-09-11] MEDS: DIVALPROEX ER 250 MG TABLET PO SCH (08:34)
[2021-09-11] MEDS: DULoxetine 30 MG CAPSULE PO SCH (08:34)
[2021-09-11] MEDS: BACLOFEN 10 MG TABLET PO SCH (08:34)
[2021-09-11] MEDS: DIAZEPAM 5 MG TABLET PO SCH (08:34)
[2021-09-11] MEDS: FUROSEMIDE 40 MG/4 ML VIAL IV SCH (08:35)
[2021-09-11] MEDS: ENOXAPARIN 40 MG/0.4 ML SYRINGE SUBCUT SCH (08:35)
[2021-09-11] MEDS: LINACLOTIDE 145 MCG CAPSULE PO SCH (08:39)
[2021-09-11] MEDS: LORATADINE 10 MG TABLET PO SCH (09:02)
[2021-09-11 16:54] VITALS: BP 109/64
== END 2021-09-11 17:06 | DRG 698 ==
LOC: EDBD → EDUNIT# → SUATTDRO → N.ED 15:18 → N.EDINP 19:00 → SUATTDRO 19:00 → N.EDINP 22:03 → N.3E 22:39
PROVIDERS: ADMIT Nurse Practitioner Family; ATTEND Hospitalist

== ENCOUNTER 2021-12-06 23:11 | Inpatient (IN) ==
[2021-12-06] MEDS ORDERED: ALUM/MAG/SIMETH/LIDO VISC 1:1 30 ML BOTTLE PO STA (23:46)
[2021-12-06] MEDS ORDERED: PANTOPRAZOLE 40 MG VIAL IV STA (23:46)
[2021-12-07 00:54] LABS: Basophils % 0.6 % (0.0-0.8); Eosinophils # 0.2 10*3/uL (0.0-0.87); Eosinophils % 2.2 % (0.00-10.9); Hematocrit 46.4 VOL% (42.0-52.0); Hemoglobin 15.2 GM/DL (14.0-18.0); Immature Granulocytes % 0.1 %; Immature Granulocytes Absolute 0.01 #; Lymphocytes # 1.9 10*3/uL (1.4-4.0); Lymphocytes % 25.6 % (21.2-54.2); Mean Corpuscular HGB Conc 32.8 GM/DL (32-36); Mean Corpuscular Volume 88.4 FL (87-102); Monocytes % 8.4 % (1.7-12.7); Neutrophils % 63.1 % (38.7-73.9); Platelet Count 118 T/CUMM (130-400); Red Blood Count 5.25 MC/CUMM (3.8-5.5); Red Cell Distribution Width 14.8 % (9.3-17.3); White Blood Count 7.2 T/CUMM (4-12)
[2021-12-07 01:08] LABS: PT Patient Result 11.5 SECS (10.5-12.0); Partial Thromboplastin Time 27.6 SECS (23.8-32.1)
[2021-12-07 01:11] LABS: Alanine Aminotransferase 32 U/L (16-61); Albumin 3.5 G/DL (3.4-5.0); Alkaline Phosphatase 125 U/L (45-117); Aspartate Amino Transferase 24 U/L (0-37); Bilirubin,Total < 0.39 MG/DL (0.20-1.00); Blood Urea Nitrogen 14 MG/DL (7-18); Calcium 9.1 MG/DL (8.5-10.1); Carbon Dioxide 31 MMOL/L (21-32); Estimated Glom Filtration Rate 174 ML/MIN; Glucose 109 MG/DL (74-106); Osmolality,Calculated 278.5 MOS/KG (273-304); Potassium 3.6 MMOL/L (3.5-5.1); Sodium 139 MMOL/L (136-145); Total Protein 7.4 G/DL (6.4-8.2)
[2021-12-07 01:12] LABS: Bacteria,Urine Occasional /HPF (Few); Bilirubin,Urine Negative (Negative); Blood, Urine Negative (Negative); Glucose,Urine (UA) Negative (Negative); Ketones,Urine Negative (Negative); Mucus,Urine Occasional /LPF (Occasional); Nitrite,Urine Positive (Negative); Protein,Urine Negative; RBC,Urine 4 /HPF (0-4); Urine Appearance Slightly Hazy (Clear); Urine Color Yellow (Yellow); Urine Specific Gravity 1.011 (1.001-1.035)
[2021-12-07 01:40] LABS: Barbiturates Screen,Urine Negative (Negative); Benzodiazepines Screen,Urine Positive (Negative); Cannabinoid Screen,Urine Negative (Negative); Opiate Screen,Urine Negative (Negative); Phencyclidine Screen,Urine Negative (Negative)
[2021-12-07] MEDS ORDERED: cefTRIAXone 1,000 MG in SODIUM CHLORIDE 0.9% 100 ML IV STA (01:41)
[2021-12-07] MEDS ORDERED: DEXTROSE 50% 25 GM/50 ML SYRINGE IV PRN (03:04)
[2021-12-07] MEDS ORDERED: ONDANSETRON 4 MG/2 ML VIAL IV PRN (03:04)
[2021-12-07] MEDS ORDERED: hydrALAZINE 20 MG/1 ML VIAL IV PRN (03:04)
[2021-12-07] MEDS ORDERED: ACETAMINOPHEN 325 MG TABLET PO PRN (03:04)
[2021-12-07] MEDS ORDERED: GLUCAGON 1 MG VIAL IM PRN (03:04)
[2021-12-07] MEDS: ASPIRIN 325 MG TABLET PO SCH ×2 (05:04→10:06)
[2021-12-07] MEDS: MEROPENEM 500 MG in SODIUM CHLORIDE 0.9% 100 ML IV SCH ×4 (05:05→21:29)
[2021-12-07 05:10] LABS: Basophils % 0.5 % (0.0-0.8); Eosinophils # 0.1 10*3/uL (0.0-0.87); Hematocrit 42.8 VOL% (42.0-52.0); Hemoglobin 13.9 GM/DL (14.0-18.0); Immature Granulocytes % 0.3 %; Immature Granulocytes Absolute 0.02 #; Lymphocytes # 1.6 10*3/uL (1.4-4.0); Lymphocytes % 25.5 % (21.2-54.2); Mean Corpuscular HGB Conc 32.5 GM/DL (32-36); Mean Corpuscular Volume 89.4 FL (87-102); Monocytes % 8.1 % (1.7-12.7); Neutrophils % 63.6 % (38.7-73.9); Platelet Count 110 T/CUMM (130-400); Red Blood Count 4.79 MC/CUMM (3.8-5.5); Red Cell Distribution Width 14.8 % (9.3-17.3); White Blood Count 6.4 T/CUMM (4-12)
[2021-12-07 05:38] LABS: Calcium 8.4 MG/DL (8.5-10.1); Osmolality,Calculated 280.3 MOS/KG (273-304); Risk Ratio 4.22; Thyroid Stimulating Hormone 2.62 uIU/ml (0.358-3.74); VLDL Cholesterol 22.2 MG/DL
[2021-12-07] MEDS ORDERED: PNEUMOCOCCAL VACCINE (13 VALENT) 0.5 ML SYRINGE IM ONE (09:01)
[2021-12-07] MEDS ORDERED: INFLUENZA VIRUS VACCINE 0.5 ML SYRINGE IM ONE (09:01)
[2021-12-07] MEDS: DULoxetine 30 MG CAPSULE PO SCH (10:06)
[2021-12-07] MEDS: DOCUSATE SODIUM 100 MG CAPSULE PO SCH ×2 (10:06→20:20)
[2021-12-07] MEDS: DIAZEPAM 5 MG TABLET PO SCH ×2 (10:06→20:19)
[2021-12-07] MEDS: PANTOPRAZOLE 40 MG TABLET PO SCH (10:06)
[2021-12-07] MEDS: PSYLLIUM POWDER 3.7 GM/PACK PO SCH ×2 (10:26→20:21)
[2021-12-07] MEDS: OXYBUTYNIN XL 10 MG TABLET PO SCH (10:26)
[2021-12-07] MEDS: BACLOFEN 10 MG TABLET PO SCH ×3 (15:00→20:20)
[2021-12-07] MEDS: GABAPENTIN 300 MG CAPSULE PO SCH ×3 (15:00→20:20)
[2021-12-07] MEDS ORDERED: SIMVASTATIN 10 MG TABLET PO SCH (19:00)
[2021-12-07] MEDS: DIVALPROEX ER 250 MG TABLET PO SCH (20:19)
[2021-12-07] MEDS: MELATONIN 3 MG TABLET PO SCH (20:19)
[2021-12-07] MEDS: ATORVASTATIN 40 MG TABLET PO SCH (20:20)
[2021-12-07] MEDS ORDERED: LATUDA 60MG PO SCH (21:00)
[2021-12-08] MEDS: MEROPENEM 500 MG in SODIUM CHLORIDE 0.9% 100 ML IV SCH ×4 (03:24→22:45)
[2021-12-08 04:01] LABS: Basophils % 0.4 % (0.0-0.8); Eosinophils # 0.1 10*3/uL (0.0-0.87); Hematocrit 45.1 VOL% (42.0-52.0); Hemoglobin 14.4 GM/DL (14.0-18.0); Immature Granulocytes % 0.4 %; Immature Granulocytes Absolute 0.03 #; Lymphocytes # 2.3 10*3/uL (1.4-4.0); Lymphocytes % 29.2 % (21.2-54.2); Mean Corpuscular HGB Conc 31.9 GM/DL (32-36); Mean Corpuscular Volume 90.6 FL (87-102); Mean Platelet Volume 12.4 FL (9.6-12.0); Monocytes % 8.9 % (1.7-12.7); Neutrophils % 60.1 % (38.7-73.9); Platelet Count 108 T/CUMM (130-400); Red Blood Count 4.98 MC/CUMM (3.8-5.5); Red Cell Distribution Width 15.1 % (9.3-17.3); White Blood Count 7.8 T/CUMM (4-12)
[2021-12-08 04:16] LABS: Calcium 8.7 MG/DL (8.5-10.1); Osmolality,Calculated 281.3 MOS/KG (273-304); Potassium 3.8 MMOL/L (3.5-5.1)
[2021-12-08] MEDS: DOCUSATE SODIUM 100 MG CAPSULE PO SCH ×2 (09:15→20:37)
[2021-12-08] MEDS: ASPIRIN 325 MG TABLET PO SCH (09:15)
[2021-12-08] MEDS: MULTIVITAMIN (CENTRUM) TABLET PO SCH (09:15)
[2021-12-08] MEDS: DULoxetine 30 MG CAPSULE PO SCH (09:16)
[2021-12-08] MEDS: OXYBUTYNIN XL 10 MG TABLET PO SCH (09:16)
[2021-12-08] MEDS: BACLOFEN 10 MG TABLET PO SCH ×4 (09:16→20:38)
[2021-12-08] MEDS: PSYLLIUM POWDER 3.7 GM/PACK PO SCH ×2 (09:16→20:38)
[2021-12-08] MEDS: DOCUSATE RECTAL SCH (09:16)
[2021-12-08] MEDS: DIAZEPAM 5 MG TABLET PO SCH ×2 (09:17→20:38)
[2021-12-08] MEDS: GABAPENTIN 300 MG CAPSULE PO SCH ×4 (09:17→20:38)
[2021-12-08] MEDS: LORATADINE 10 MG TABLET PO SCH (09:17)
[2021-12-08] MEDS: PANTOPRAZOLE 40 MG TABLET PO SCH (09:17)
[2021-12-08 20:22] LABS: Bacteria,Urine Occasional /HPF (Few); Bilirubin,Urine Negative (Negative); Blood, Urine Negative (Negative); Glucose,Urine (UA) Negative (Negative); Ketones,Urine Negative (Negative); Mucus,Urine Occasional /LPF (Occasional); Nitrite,Urine Negative (Negative); Protein,Urine Negative; RBC,Urine <1 /HPF (0-4); Squamous Epithelial Cell,Urine Occasional /HPF (0-10); Urine Appearance CLEAR (Clear); Urine Color Yellow (Yellow); Urine Specific Gravity 1.012 (1.001-1.035); Urine Urobilinogen < 2.0 EU/DL (<2.0)
[2021-12-08] MEDS: ATORVASTATIN 40 MG TABLET PO SCH (20:38)
[2021-12-08] MEDS: DIVALPROEX ER 250 MG TABLET PO SCH (20:38)
[2021-12-08] MEDS: MELATONIN 3 MG TABLET PO SCH (20:38)
[2021-12-08] MEDS: LATUDA 120 MG PO SCH (20:39)
[2021-12-09] MEDS: MEROPENEM 500 MG in SODIUM CHLORIDE 0.9% 100 ML IV SCH ×4 (04:41→22:03)
[2021-12-09 05:52] LABS: Basophils % 0.4 % (0.0-0.8); Eosinophils # 0.2 10*3/uL (0.0-0.87); Eosinophils % 2.6 % (0.00-10.9); Hematocrit 45.2 VOL% (42.0-52.0); Hemoglobin 14.5 GM/DL (14.0-18.0); Immature Granulocytes % 0.2 %; Immature Granulocytes Absolute 0.02 #; Lymphocytes # 1.8 10*3/uL (1.4-4.0); Lymphocytes % 21.6 % (21.2-54.2); Mean Corpuscular HGB Conc 32.1 GM/DL (32-36); Mean Corpuscular Volume 90.2 FL (87-102); Monocytes % 9.1 % (1.7-12.7); Neutrophils % 66.1 % (38.7-73.9); Platelet Count 118 T/CUMM (130-400); Red Blood Count 5.01 MC/CUMM (3.8-5.5); Red Cell Distribution Width 14.9 % (9.3-17.3); White Blood Count 8.2 T/CUMM (4-12)
[2021-12-09 06:11] LABS: Calcium 8.9 MG/DL (8.5-10.1); Osmolality,Calculated 279.3 MOS/KG (273-304); Potassium 3.7 MMOL/L (3.5-5.1)
[2021-12-09] MEDS: PANTOPRAZOLE 40 MG TABLET PO SCH (09:25)
[2021-12-09] MEDS: DULoxetine 30 MG CAPSULE PO SCH (09:25)
[2021-12-09] MEDS: GABAPENTIN 300 MG CAPSULE PO SCH ×4 (09:26→20:46)
[2021-12-09] MEDS: BACLOFEN 10 MG TABLET PO SCH ×4 (09:26→20:43)
[2021-12-09] MEDS: DIAZEPAM 5 MG TABLET PO SCH ×2 (09:26→20:43)
[2021-12-09] MEDS: MULTIVITAMIN (CENTRUM) TABLET PO SCH (09:26)
[2021-12-09] MEDS: DOCUSATE SODIUM 100 MG CAPSULE PO SCH ×2 (09:26→20:43)
[2021-12-09] MEDS: ASPIRIN EC 81 MG TABLET PO SCH (09:26)
[2021-12-09] MEDS: OXYBUTYNIN XL 10 MG TABLET PO SCH (09:26)
[2021-12-09] MEDS: LORATADINE 10 MG TABLET PO SCH (09:26)
[2021-12-09] MEDS: PSYLLIUM POWDER 3.7 GM/PACK PO SCH ×2 (09:27→20:43)
[2021-12-09] MEDS: DIVALPROEX ER 250 MG TABLET PO SCH (20:43)
[2021-12-09] MEDS: ATORVASTATIN 40 MG TABLET PO SCH (20:43)
[2021-12-09] MEDS: MELATONIN 3 MG TABLET PO SCH (20:43)
[2021-12-09] MEDS: LATUDA 120 MG PO SCH (20:46)
[2021-12-10] MEDS: MEROPENEM 500 MG in SODIUM CHLORIDE 0.9% 100 ML IV SCH ×4 (03:09→22:39)
[2021-12-10 05:53] LABS: Basophils % 0.5 % (0.0-0.8); Eosinophils # 0.2 10*3/uL (0.0-0.87); Eosinophils % 2.3 % (0.00-10.9); Hemoglobin 14.2 GM/DL (14.0-18.0); Immature Granulocytes % 0.5 %; Immature Granulocytes Absolute 0.04 #; Lymphocytes # 1.8 10*3/uL (1.4-4.0); Lymphocytes % 22.4 % (21.2-54.2); Mean Corpuscular HGB Conc 32.3 GM/DL (32-36); Monocytes % 8.7 % (1.7-12.7); Neutrophils % 65.6 % (38.7-73.9); Platelet Count 102 T/CUMM (130-400); Red Blood Count 4.89 MC/CUMM (3.8-5.5); Red Cell Distribution Width 14.7 % (9.3-17.3); White Blood Count 7.9 T/CUMM (4-12)
[2021-12-10 06:21] LABS: Calcium 9.3 MG/DL (8.5-10.1); Osmolality,Calculated 277.4 MOS/KG (273-304); Potassium 3.7 MMOL/L (3.5-5.1)
[2021-12-10] MEDS: DOCUSATE SODIUM 100 MG CAPSULE PO SCH ×2 (08:57→21:13)
[2021-12-10] MEDS: LORATADINE 10 MG TABLET PO SCH (08:58)
[2021-12-10] MEDS: MULTIVITAMIN (CENTRUM) TABLET PO SCH (08:58)
[2021-12-10] MEDS: DULoxetine 30 MG CAPSULE PO SCH (08:58)
[2021-12-10] MEDS: PSYLLIUM POWDER 3.7 GM/PACK PO SCH ×2 (08:58→21:11)
[2021-12-10] MEDS: OXYBUTYNIN XL 10 MG TABLET PO SCH (08:58)
[2021-12-10] MEDS: DIAZEPAM 5 MG TABLET PO SCH ×2 (08:58→21:20)
[2021-12-10] MEDS: GABAPENTIN 300 MG CAPSULE PO SCH ×4 (08:58→21:12)
[2021-12-10] MEDS: PANTOPRAZOLE 40 MG TABLET PO SCH (08:58)
[2021-12-10] MEDS: ASPIRIN EC 81 MG TABLET PO SCH (08:58)
[2021-12-10] MEDS: BACLOFEN 10 MG TABLET PO SCH ×4 (11:18→21:12)
[2021-12-10] MEDS: MELATONIN 3 MG TABLET PO SCH (21:12)
[2021-12-10] MEDS: ATORVASTATIN 40 MG TABLET PO SCH (21:13)
[2021-12-10] MEDS: DIVALPROEX ER 250 MG TABLET PO SCH (21:14)
[2021-12-10] MEDS: LATUDA 120 MG PO SCH (22:39)
[2021-12-11] MEDS: MEROPENEM 500 MG in SODIUM CHLORIDE 0.9% 100 ML IV SCH ×4 (04:43→21:35)
[2021-12-11 05:53] LABS: Basophils % 0.5 % (0.0-0.8); Eosinophils # 0.2 10*3/uL (0.0-0.87); Eosinophils % 3.3 % (0.00-10.9); Hematocrit 43.6 VOL% (42.0-52.0); Hemoglobin 14.2 GM/DL (14.0-18.0); Immature Granulocytes % 0.5 %; Immature Granulocytes Absolute 0.03 #; Lymphocytes # 1.9 10*3/uL (1.4-4.0); Lymphocytes % 30.1 % (21.2-54.2); Mean Corpuscular HGB Conc 32.6 GM/DL (32-36); Mean Corpuscular Volume 89.3 FL (87-102); Mean Platelet Volume 12.6 FL (9.6-12.0); Monocytes % 8.5 % (1.7-12.7); Neutrophils % 57.1 % (38.7-73.9); Platelet Count 110 T/CUMM (130-400); Red Blood Count 4.88 MC/CUMM (3.8-5.5); Red Cell Distribution Width 14.6 % (9.3-17.3); White Blood Count 6.5 T/CUMM (4-12)
[2021-12-11 06:06] LABS: Calcium 8.9 MG/DL (8.5-10.1); Osmolality,Calculated 281.1 MOS/KG (273-304); Potassium 3.8 MMOL/L (3.5-5.1)
[2021-12-11] MEDS: PANTOPRAZOLE 40 MG TABLET PO SCH (10:05)
[2021-12-11] MEDS: BACLOFEN 10 MG TABLET PO SCH ×4 (10:05→21:48)
[2021-12-11] MEDS: GABAPENTIN 300 MG CAPSULE PO SCH ×4 (10:05→21:34)
[2021-12-11] MEDS: DIAZEPAM 5 MG TABLET PO SCH ×2 (10:05→21:35)
[2021-12-11] MEDS: ASPIRIN EC 81 MG TABLET PO SCH (10:05)
[2021-12-11] MEDS: OXYBUTYNIN XL 10 MG TABLET PO SCH (10:05)
[2021-12-11] MEDS: DOCUSATE SODIUM 100 MG CAPSULE PO SCH ×2 (10:05→21:35)
[2021-12-11] MEDS: LORATADINE 10 MG TABLET PO SCH (10:05)
[2021-12-11] MEDS: DULoxetine 30 MG CAPSULE PO SCH (10:05)
[2021-12-11] MEDS: PSYLLIUM POWDER 3.7 GM/PACK PO SCH ×2 (10:05→21:35)
[2021-12-11] MEDS: MULTIVITAMIN (CENTRUM) TABLET PO SCH (10:05)
[2021-12-11] MEDS: DOCUSATE RECTAL SCH (10:49)
[2021-12-11] MEDS: LATUDA 120 MG PO SCH (21:00)
[2021-12-11] MEDS: ATORVASTATIN 40 MG TABLET PO SCH (21:34)
[2021-12-11] MEDS: DIVALPROEX ER 250 MG TABLET PO SCH (21:35)
[2021-12-11] MEDS: MELATONIN 3 MG TABLET PO SCH (21:48)
[2021-12-12] MEDS: MEROPENEM 500 MG in SODIUM CHLORIDE 0.9% 100 ML IV SCH ×4 (04:36→21:04)
[2021-12-12] MEDS: PSYLLIUM POWDER 3.7 GM/PACK PO SCH ×2 (10:27→21:11)
[2021-12-12] MEDS: DIAZEPAM 5 MG TABLET PO SCH ×2 (10:27→21:00)
[2021-12-12] MEDS: MULTIVITAMIN (CENTRUM) TABLET PO SCH (10:28)
[2021-12-12] MEDS: LORATADINE 10 MG TABLET PO SCH (10:28)
[2021-12-12] MEDS: GABAPENTIN 300 MG CAPSULE PO SCH ×4 (10:28→21:00)
[2021-12-12] MEDS: DULoxetine 30 MG CAPSULE PO SCH (10:28)
[2021-12-12] MEDS: BACLOFEN 10 MG TABLET PO SCH ×4 (10:29→21:10)
[2021-12-12] MEDS: OXYBUTYNIN XL 10 MG TABLET PO SCH (10:29)
[2021-12-12] MEDS: ASPIRIN EC 81 MG TABLET PO SCH (10:30)
[2021-12-12] MEDS: PANTOPRAZOLE 40 MG TABLET PO SCH (10:30)
[2021-12-12] MEDS: DOCUSATE SODIUM 100 MG CAPSULE PO SCH ×2 (10:31→21:00)
[2021-12-12] MEDS: DOCUSATE RECTAL SCH (17:15)
[2021-12-12] MEDS: ATORVASTATIN 40 MG TABLET PO SCH (21:00)
[2021-12-12] MEDS: DIVALPROEX ER 250 MG TABLET PO SCH (21:11)
[2021-12-12] MEDS: MELATONIN 3 MG TABLET PO SCH (21:11)
[2021-12-12] MEDS: LATUDA 120 MG PO SCH (21:11)
[2021-12-13] MEDS: MEROPENEM 500 MG in SODIUM CHLORIDE 0.9% 100 ML IV SCH ×4 (03:51→16:34)
[2021-12-13] MEDS: OXYBUTYNIN XL 10 MG TABLET PO SCH (08:46)
[2021-12-13] MEDS: BACLOFEN 10 MG TABLET PO SCH ×2 (08:47→12:48)
[2021-12-13] MEDS: LORATADINE 10 MG TABLET PO SCH (08:47)
[2021-12-13] MEDS: GABAPENTIN 300 MG CAPSULE PO SCH ×2 (08:47→12:48)
[2021-12-13] MEDS: ASPIRIN EC 81 MG TABLET PO SCH (08:47)
[2021-12-13] MEDS: MULTIVITAMIN (CENTRUM) TABLET PO SCH (08:47)
[2021-12-13] MEDS: DOCUSATE SODIUM 100 MG CAPSULE PO SCH (08:47)
[2021-12-13] MEDS: DULoxetine 30 MG CAPSULE PO SCH (08:47)
[2021-12-13] MEDS: PANTOPRAZOLE 40 MG TABLET PO SCH (08:48)
[2021-12-13] MEDS: PSYLLIUM POWDER 3.7 GM/PACK PO SCH (08:54)
[2021-12-13] MEDS: DIAZEPAM 5 MG TABLET PO SCH (08:54)
[2021-12-13] MEDS ORDERED: MAGNESIUM CITRATE 300 ML BOTTLE PO ONE (10:36)
[2021-12-13] MEDS ORDERED: FOSFOMYCIN 3 GM PACK PO ONE (13:00)
[2021-12-13] MEDS: DOCUSATE RECTAL SCH (14:33)
[2021-12-13 16:42] VITALS: BP 119/58
== END 2021-12-13 16:54 | disposition home health service (06) | DRG 698 ==
LOC: EDBD → EDUNIT# → N.ED 23:11 → N.EDINP 12-07 03:04 → SUATTDRO 12-07 03:04 → N.TELES 12-07 06:51
PROVIDERS: ADMIT Internal Medicine; ATTEND Internal Medicine

== ENCOUNTER 2022-03-30 11:27 | Inpatient (IN) ==
[2022-03-30] MEDS ORDERED: SODIUM CHLORIDE 0.9% 1,000 ML IV STA ×2 (11:36→11:55)
[2022-03-30 12:04] LABS: Basophils % 0.2 % (0.0-0.8); Eosinophils % 0.3 % (0.00-10.9); Hematocrit 44.4 VOL% (42.0-52.0); Hemoglobin 14.7 GM/DL (14.0-18.0); Immature Granulocytes % 0.5 %; Immature Granulocytes Absolute 0.07 #; Lymphocytes # 1.5 10*3/uL (1.4-4.0); Lymphocytes % 10.1 % (21.2-54.2); Mean Corpuscular HGB Conc 33.1 GM/DL (32-36); Mean Corpuscular Volume 92.3 FL (87-102); Mean Platelet Volume 13.4 FL (9.6-12.0); Monocytes # 1.1 10*3/uL (0.11-0.8); Monocytes % 7.6 % (1.7-12.7); Neutrophils % 81.3 % (38.7-73.9); Platelet Count 144 T/CUMM (130-400); Red Blood Count 4.81 MC/CUMM (3.8-5.5); Red Cell Distribution Width 14.7 % (9.3-17.3); White Blood Count 14.9 T/CUMM (4-12)
[2022-03-30 12:34] LABS: Alanine Aminotransferase 35 U/L (16-61); Albumin 3.1 G/DL (3.4-5.0); Alkaline Phosphatase 112 U/L (45-117); Aspartate Amino Transferase 28 U/L (0-37); Bilirubin,Total < 0.39 MG/DL (0.20-1.00); Blood Urea Nitrogen 24 MG/DL (7-18); Calcium 9.1 MG/DL (8.5-10.1); Carbon Dioxide 25 MMOL/L (21-32); Chloride 103 MMOL/L (98-107); Estimated Glom Filtration Rate 82 ML/MIN; Glucose 156 MG/DL (74-106); Osmolality,Calculated 276.1 MOS/KG (273-304); Potassium 4.5 MMOL/L (3.5-5.1); Sodium 135 MMOL/L (136-145); Total Protein 7.2 G/DL (6.4-8.2)
[2022-03-30] MEDS ORDERED: cefTRIAXone 1,000 MG in SODIUM CHLORIDE 0.9% 100 ML IV STA (12:58)
[2022-03-30] MEDS ORDERED: ONDANSETRON 4 MG/2 ML VIAL IV PRN (13:53)
[2022-03-30] MEDS ORDERED: DEXTROSE 10% 25 GM/250 ML BAG IV PRN (13:53)
[2022-03-30] MEDS ORDERED: GLUCAGON 1 MG VIAL IM PRN (13:53)
[2022-03-30] MEDS: SODIUM CHLORIDE 0.9% 1,000 ML IV SCH (14:05)
[2022-03-30 14:24] LABS: Mucus,Urine Few /LPF (Occasional); Urine Color Yellow (Yellow)
[2022-03-30 14:25] LABS: Bilirubin,Urine Negative (Negative); Blood, Urine Moderate mg/dL (Negative); Glucose,Urine (UA) Negative (Negative); Ketones,Urine Negative (Negative); Nitrite,Urine Negative (Negative); Protein,Urine 30 mg/dL (Negative); Urine Appearance Cloudy (Clear); Urine Urobilinogen 0.2 eU/dL (<2.0)
[2022-03-30] MEDS: GABAPENTIN 300 MG CAPSULE PO SCH ×2 (17:30→21:11)
[2022-03-30] MEDS: BACLOFEN 10 MG TABLET PO SCH ×2 (17:31→21:10)
[2022-03-30] MEDS: tiZANidine 4 MG TABLET PO SCH ×2 (17:31→21:11)
[2022-03-30] MEDS: HEPARIN 5,000 UNIT/1 ML VIAL SUBCUT SCH (17:39)
[2022-03-30] MEDS: ACETAMINOPHEN 325 MG TABLET PO PRN (17:44)
[2022-03-30] MEDS: MELATONIN 3 MG TABLET PO SCH (21:08)
[2022-03-30] MEDS: DIVALPROEX ER 250 MG TABLET PO SCH (21:09)
[2022-03-30] MEDS: DOCUSATE SODIUM 100 MG CAPSULE PO SCH (21:10)
[2022-03-30] MEDS: SIMVASTATIN 10 MG TABLET PO SCH (21:10)
[2022-03-30] MEDS: DIAZEPAM 5 MG TABLET PO SCH (21:10)
[2022-03-31] MEDS: SODIUM CHLORIDE 0.9% 1,000 ML IV SCH ×3 (00:51→21:40)
[2022-03-31] MEDS: HEPARIN 5,000 UNIT/1 ML VIAL SUBCUT SCH (02:19)
[2022-03-31] MEDS: PANTOPRAZOLE 40 MG TABLET PO SCH (05:45)
[2022-03-31 06:09] LABS: Basophils % 0.2 % (0.0-0.8); Eosinophils # 0.1 10*3/uL (0.0-0.87); Eosinophils % 1.2 % (0.00-10.9); Hematocrit 40.1 VOL% (42.0-52.0); Hemoglobin 12.9 GM/DL (14.0-18.0); Immature Granulocytes % 0.5 %; Immature Granulocytes Absolute 0.04 #; Lymphocytes # 2.2 10*3/uL (1.4-4.0); Lymphocytes % 25.9 % (21.2-54.2); Mean Corpuscular HGB Conc 32.2 GM/DL (32-36); Mean Platelet Volume 12.9 FL (9.6-12.0); Monocytes # 0.7 10*3/uL (0.11-0.8); Monocytes % 8.5 % (1.7-12.7); Neutrophils % 63.7 % (38.7-73.9); Platelet Count 99 T/CUMM (130-400); Red Blood Count 4.31 MC/CUMM (3.8-5.5); White Blood Count 8.3 T/CUMM (4-12)
[2022-03-31 06:30] LABS: Alanine Aminotransferase 26 U/L (16-61); Albumin 2.9 G/DL (3.4-5.0); Alkaline Phosphatase 94 U/L (45-117); Aspartate Amino Transferase 19 U/L (0-37); Bilirubin,Total < 0.39 MG/DL (0.20-1.00); Blood Urea Nitrogen 17 MG/DL (7-18); Calcium 8.8 MG/DL (8.5-10.1); Carbon Dioxide 27 MMOL/L (21-32); Chloride 110 MMOL/L (98-107); Estimated Glom Filtration Rate 171 ML/MIN; Glucose 115 MG/DL (74-106); Osmolality,Calculated 285.1 MOS/KG (273-304); Potassium 3.9 MMOL/L (3.5-5.1); Sodium 142 MMOL/L (136-145); Total Protein 6.4 G/DL (6.4-8.2)
[2022-03-31 06:35] LABS: Platelet Estimate Adequate
[2022-03-31] MEDS: ACETAMINOPHEN 325 MG TABLET PO PRN (09:32)
[2022-03-31] MEDS: BACLOFEN 10 MG TABLET PO SCH ×4 (09:33→21:49)
[2022-03-31] MEDS: DOCUSATE SODIUM 100 MG CAPSULE PO SCH ×2 (09:33→21:49)
[2022-03-31] MEDS: DULoxetine 30 MG CAPSULE PO SCH (09:34)
[2022-03-31] MEDS: GABAPENTIN 300 MG CAPSULE PO SCH ×4 (09:34→21:49)
[2022-03-31] MEDS: tiZANidine 4 MG TABLET PO SCH ×4 (09:34→21:49)
[2022-03-31] MEDS: DIAZEPAM 5 MG TABLET PO SCH ×2 (09:34→21:49)
[2022-03-31] MEDS: OXYBUTYNIN XL 10 MG TABLET PO SCH (09:34)
[2022-03-31] MEDS: cefTRIAXone 1,000 MG in SODIUM CHLORIDE 0.9% 100 ML IV SCH (09:46)
[2022-03-31] MEDS ORDERED: MORPHINE 2 MG/1 ML SYRINGE IV ONE (14:30)
[2022-03-31] MEDS: DIVALPROEX ER 250 MG TABLET PO SCH (21:48)
[2022-03-31] MEDS: MELATONIN 3 MG TABLET PO SCH (21:49)
[2022-03-31] MEDS: SIMVASTATIN 10 MG TABLET PO SCH (21:49)
[2022-04-01] MEDS: PANTOPRAZOLE 40 MG TABLET PO SCH (05:30)
[2022-04-01 06:00] LABS: Basophils % 0.3 % (0.0-0.8); Eosinophils # 0.1 10*3/uL (0.0-0.87); Hematocrit 41.2 VOL% (42.0-52.0); Hemoglobin 13.5 GM/DL (14.0-18.0); Immature Granulocytes % 0.6 %; Immature Granulocytes Absolute 0.05 #; Lymphocytes # 2.2 10*3/uL (1.4-4.0); Lymphocytes % 25.4 % (21.2-54.2); Mean Corpuscular HGB Conc 32.8 GM/DL (32-36); Mean Corpuscular Volume 91.8 FL (87-102); Mean Platelet Volume 12.2 FL (9.6-12.0); Monocytes # 0.9 10*3/uL (0.11-0.8); Monocytes % 10.4 % (1.7-12.7); Neutrophils % 62.3 % (38.7-73.9); Platelet Count 100 T/CUMM (130-400); Red Blood Count 4.49 MC/CUMM (3.8-5.5); White Blood Count 8.8 T/CUMM (4-12)
[2022-04-01 06:16] LABS: Calcium 8.8 MG/DL (8.5-10.1); Osmolality,Calculated 283.1 MOS/KG (273-304)
[2022-04-01] MEDS ORDERED: SODIUM PHOSPHATE ENEMA 133 ML BOTTLE RECTAL ONE (08:30)
[2022-04-01] MEDS: GABAPENTIN 300 MG CAPSULE PO SCH ×4 (08:58→21:30)
[2022-04-01] MEDS: DULoxetine 30 MG CAPSULE PO SCH (08:58)
[2022-04-01] MEDS: OXYBUTYNIN XL 10 MG TABLET PO SCH (08:58)
[2022-04-01] MEDS: DOCUSATE SODIUM 100 MG CAPSULE PO SCH ×2 (08:59→21:30)
[2022-04-01] MEDS: BACLOFEN 10 MG TABLET PO SCH ×4 (08:59→21:31)
[2022-04-01] MEDS: DIAZEPAM 5 MG TABLET PO SCH ×2 (08:59→21:30)
[2022-04-01] MEDS: tiZANidine 4 MG TABLET PO SCH ×4 (08:59→21:30)
[2022-04-01] MEDS: SODIUM CHLORIDE 0.9% 1,000 ML IV SCH (10:29)
[2022-04-01] MEDS: cefTRIAXone 1,000 MG in SODIUM CHLORIDE 0.9% 100 ML IV SCH (10:29)
[2022-04-01] MEDS ORDERED: hydrALAZINE 20 MG/1 ML VIAL IV PRN (12:33)
[2022-04-01] MEDS: DIVALPROEX ER 250 MG TABLET PO SCH (21:29)
[2022-04-01] MEDS: MELATONIN 3 MG TABLET PO SCH (21:29)
[2022-04-01] MEDS: SIMVASTATIN 10 MG TABLET PO SCH (21:30)
[2022-04-01] MEDS: ACETAMINOPHEN 325 MG TABLET PO PRN (21:32)
[2022-04-02 05:12] LABS: Basophils % 0.5 % (0.0-0.8); Eosinophils # 0.1 10*3/uL (0.0-0.87); Eosinophils % 1.5 % (0.00-10.9); Hematocrit 41.7 VOL% (42.0-52.0); Hemoglobin 13.7 GM/DL (14.0-18.0); Immature Granulocytes % 0.4 %; Immature Granulocytes Absolute 0.03 #; Lymphocytes # 2.3 10*3/uL (1.4-4.0); Lymphocytes % 27.4 % (21.2-54.2); Mean Corpuscular HGB Conc 32.9 GM/DL (32-36); Mean Corpuscular Volume 91.2 FL (87-102); Monocytes # 0.9 10*3/uL (0.11-0.8); Monocytes % 10.2 % (1.7-12.7); Platelet Count 106 T/CUMM (130-400); Red Blood Count 4.57 MC/CUMM (3.8-5.5); Red Cell Distribution Width 14.7 % (9.3-17.3); White Blood Count 8.5 T/CUMM (4-12)
[2022-04-02 05:34] LABS: Calcium 8.8 MG/DL (8.5-10.1); Osmolality,Calculated 283.1 MOS/KG (273-304); Potassium 3.7 MMOL/L (3.5-5.1)
[2022-04-02] MEDS: PANTOPRAZOLE 40 MG TABLET PO SCH (05:36)
[2022-04-02] MEDS ORDERED: KETOROLAC 30 MG/1 ML VIAL IV ONE (08:57)
[2022-04-02] MEDS ORDERED: MAGNESIUM CITRATE 300 ML BOTTLE PO ONE (08:58)
[2022-04-02] MEDS ORDERED: BISACODYL 10 MG SUPP RECTAL SCH (09:00)
[2022-04-02] MEDS: DIAZEPAM 5 MG TABLET PO SCH ×2 (09:01→20:45)
[2022-04-02] MEDS: DOCUSATE SODIUM 100 MG CAPSULE PO SCH ×2 (09:01→20:45)
[2022-04-02] MEDS: tiZANidine 4 MG TABLET PO SCH ×4 (09:01→20:45)
[2022-04-02] MEDS: BACLOFEN 10 MG TABLET PO SCH ×4 (09:01→20:45)
[2022-04-02] MEDS: GABAPENTIN 300 MG CAPSULE PO SCH ×4 (09:01→20:44)
[2022-04-02] MEDS: SODIUM CHLORIDE 0.9% 1,000 ML IV SCH ×3 (09:01→20:50)
[2022-04-02] MEDS: DULoxetine 30 MG CAPSULE PO SCH (09:02)
[2022-04-02] MEDS: ACETAMINOPHEN 325 MG TABLET PO PRN (09:02)
[2022-04-02] MEDS: amLODIPine 5 MG TABLET PO SCH (09:02)
[2022-04-02] MEDS: OXYBUTYNIN XL 10 MG TABLET PO SCH (09:02)
[2022-04-02] MEDS: cefTRIAXone 1,000 MG in SODIUM CHLORIDE 0.9% 100 ML IV SCH (09:03)
[2022-04-02] MEDS: MELATONIN 3 MG TABLET PO SCH (20:44)
[2022-04-02] MEDS: DIVALPROEX ER 250 MG TABLET PO SCH (20:45)
[2022-04-02] MEDS: SIMVASTATIN 10 MG TABLET PO SCH (20:45)
[2022-04-02] MEDS: MORPHINE 2 MG/1 ML SYRINGE IV PRN (20:49)
[2022-04-03] MEDS: MORPHINE 2 MG/1 ML SYRINGE IV PRN (03:38)
[2022-04-03] MEDS: SODIUM CHLORIDE 0.9% 1,000 ML IV SCH (03:41)
[2022-04-03 05:09] LABS: Basophils % 0.5 % (0.0-0.8); Eosinophils # 0.2 10*3/uL (0.0-0.87); Eosinophils % 2.3 % (0.00-10.9); Hematocrit 42.5 VOL% (42.0-52.0); Hemoglobin 14.3 GM/DL (14.0-18.0); Immature Granulocytes % 0.5 %; Immature Granulocytes Absolute 0.04 #; Lymphocytes # 1.9 10*3/uL (1.4-4.0); Lymphocytes % 23.2 % (21.2-54.2); Mean Corpuscular HGB Conc 33.6 GM/DL (32-36); Mean Corpuscular Volume 90.2 FL (87-102); Mean Platelet Volume 12.2 FL (9.6-12.0); Monocytes # 0.7 10*3/uL (0.11-0.8); Monocytes % 8.6 % (1.7-12.7); Neutrophils % 64.9 % (38.7-73.9); Platelet Count 110 T/CUMM (130-400); Red Blood Count 4.71 MC/CUMM (3.8-5.5); Red Cell Distribution Width 14.4 % (9.3-17.3); White Blood Count 8.3 T/CUMM (4-12)
[2022-04-03 05:22] LABS: Osmolality,Calculated 276.5 MOS/KG (273-304)
[2022-04-03] MEDS: ACETAMINOPHEN 325 MG TABLET PO PRN (05:56)
[2022-04-03] MEDS: PANTOPRAZOLE 40 MG TABLET PO SCH (05:57)
[2022-04-03] MEDS: BACLOFEN 10 MG TABLET PO SCH ×2 (08:50→14:17)
[2022-04-03] MEDS: GABAPENTIN 300 MG CAPSULE PO SCH ×2 (08:50→14:17)
[2022-04-03] MEDS: DOCUSATE SODIUM 100 MG CAPSULE PO SCH (08:50)
[2022-04-03] MEDS: cefTRIAXone 1,000 MG in SODIUM CHLORIDE 0.9% 100 ML IV SCH (08:51)
[2022-04-03] MEDS: tiZANidine 4 MG TABLET PO SCH ×2 (08:51→14:18)
[2022-04-03] MEDS: DIAZEPAM 5 MG TABLET PO SCH (08:51)
[2022-04-03] MEDS: amLODIPine 5 MG TABLET PO SCH (08:51)
[2022-04-03] MEDS: DULoxetine 30 MG CAPSULE PO SCH (08:51)
[2022-04-03] MEDS: OXYBUTYNIN XL 10 MG TABLET PO SCH (08:55)
[2022-04-03 11:44] VITALS: BP 132/80
== END 2022-04-03 14:32 | disposition home health service (06) | DRG 698 ==
LOC: N.ED 11:27 → N.EDINP 13:53 → SUATTDRO 13:53 → N.EDINP 15:25 → N.5E 15:51
PROVIDERS: ADMIT Internal Medicine Geriatric Medicine; ATTEND Emergency Medicine

== ENCOUNTER 2022-04-13 22:37 | Observation (INO) ==
[2022-04-13] MEDS ORDERED: SODIUM CHLORIDE 0.9% 1,000 ML IV STA (23:09)
[2022-04-13 23:38] LABS: Basophils % 0.3 % (0.0-0.8); Eosinophils # 0.1 10*3/uL (0.0-0.87); Eosinophils % 0.8 % (0.00-10.9); Hematocrit 44.8 VOL% (42.0-52.0); Hemoglobin 14.9 GM/DL (14.0-18.0); Immature Granulocytes % 0.3 %; Immature Granulocytes Absolute 0.03 #; Lymphocytes # 1.5 10*3/uL (1.4-4.0); Lymphocytes % 12.6 % (21.2-54.2); Mean Corpuscular HGB Conc 33.3 GM/DL (32-36); Mean Corpuscular Volume 90.1 FL (87-102); Mean Platelet Volume 12.5 FL (9.6-12.0); Monocytes # 1.3 10*3/uL (0.11-0.8); Monocytes % 11.1 % (1.7-12.7); Neutrophils % 74.9 % (38.7-73.9); Platelet Count 146 T/CUMM (130-400); Red Blood Count 4.97 MC/CUMM (3.8-5.5); White Blood Count 11.9 T/CUMM (4-12)
[2022-04-13 23:40] LABS: Bacteria,Urine Occasional /HPF (Few); Bilirubin,Urine Negative (Negative); Blood, Urine Negative (Negative); Glucose,Urine (UA) Negative (Negative); Ketones,Urine Negative (Negative); Mucus,Urine Occasional /LPF (Occasional); Nitrite,Urine Negative (Negative); Protein,Urine Negative (Negative); RBC,Urine 1 /HPF (0-4); Squamous Epithelial Cell,Urine Occasional /HPF (0-10); Urine Appearance Clear (Clear); Urine Color Yellow (Yellow); Urine Specific Gravity 1.005 (1.001-1.035); Urine Urobilinogen 0.2 eU/dL (<2.0); Urine pH 5.5 (4.5-8.0)
[2022-04-13 23:47] LABS: INR 1.1; PT Patient Result 11.9 SECS (10.5-12.0)
[2022-04-13 23:53] LABS: Albumin 3.2 G/DL (3.4-5.0); Bilirubin,Total 0.4 MG/DL (0.20-1.00); Osmolality,Calculated 281.4 MOS/KG (273-304); Potassium 3.6 MMOL/L (3.5-5.1); Total Protein 6.5 G/DL (6.4-8.2)
[2022-04-14 00:52] LABS: Barbiturates Screen,Urine Negative (Negative); Benzodiazepines Screen,Urine Positive (Negative); Cannabinoid Screen,Urine Negative (Negative); Opiate Screen,Urine Negative (Negative); Phencyclidine Screen,Urine Negative (Negative)
[2022-04-14] MEDS ORDERED: SODIUM CHLORIDE 0.9% 2,000 ML IV STA (01:22)
[2022-04-14] MEDS ORDERED: GLUCAGON 1 MG VIAL IM PRN (02:39)
[2022-04-14] MEDS ORDERED: ONDANSETRON 4 MG/2 ML VIAL IV PRN (02:39)
[2022-04-14] MEDS ORDERED: DEXTROSE 10% 250 ML BAG IV PRN (02:39)
[2022-04-14] MEDS: ACETAMINOPHEN 325 MG TABLET PO PRN ×2 (03:29→08:55)
[2022-04-14] MEDS: LACTATED RINGERS 1,000 ML IV SCH ×2 (03:47→17:22)
[2022-04-14 05:58] LABS: Basophils % 0.5 % (0.0-0.8); Eosinophils % 0.5 % (0.00-10.9); Hematocrit 40.4 VOL% (42.0-52.0); Hemoglobin 13.3 GM/DL (14.0-18.0); Immature Granulocytes % 0.3 %; Immature Granulocytes Absolute 0.03 #; Lymphocytes # 1.2 10*3/uL (1.4-4.0); Lymphocytes % 13.5 % (21.2-54.2); Mean Corpuscular HGB Conc 32.9 GM/DL (32-36); Mean Corpuscular Volume 91.4 FL (87-102); Mean Platelet Volume 12.7 FL (9.6-12.0); Monocytes # 0.5 10*3/uL (0.11-0.8); Monocytes % 5.8 % (1.7-12.7); Neutrophils % 79.4 % (38.7-73.9); Platelet Count 134 T/CUMM (130-400); Red Blood Count 4.42 MC/CUMM (3.8-5.5); Red Cell Distribution Width 14.1 % (9.3-17.3); White Blood Count 8.7 T/CUMM (4-12)
[2022-04-14 06:14] LABS: Calcium 8.7 MG/DL (8.5-10.1); Osmolality,Calculated 275.8 MOS/KG (273-304); Potassium 3.9 MMOL/L (3.5-5.1)
[2022-04-14] MEDS: PANTOPRAZOLE 40 MG TABLET PO SCH (08:55)
[2022-04-14] MEDS: DOCUSATE SODIUM 100 MG CAPSULE PO SCH ×2 (12:28→21:17)
[2022-04-14] MEDS: DULoxetine 30 MG CAPSULE PO SCH (12:29)
[2022-04-14] MEDS: OXYBUTYNIN XL 10 MG TABLET PO SCH (12:29)
[2022-04-14] MEDS: GABAPENTIN 300 MG CAPSULE PO SCH ×3 (12:29→21:17)
[2022-04-14] MEDS ORDERED: BISACODYL 10 MG SUPP RECTAL SCH (12:30)
[2022-04-14] MEDS ORDERED: DIAZEPAM 5 MG TABLET PO ONE (12:41)
[2022-04-14] MEDS ORDERED: DIVALPROEX ER 250 MG TABLET PO SCH (21:00)
[2022-04-14] MEDS ORDERED: SIMVASTATIN 10 MG TABLET PO SCH (21:00)
[2022-04-14] MEDS ORDERED: ENOXAPARIN 40 MG/0.4 ML SYRINGE SUBCUT SCH (21:00)
[2022-04-14] MEDS: DIAZEPAM 5 MG TABLET PO SCH (21:18)
[2022-04-14] MEDS ORDERED: BACLOFEN 10 MG TABLET PO ONE (22:25)
[2022-04-15] MEDS: LACTATED RINGERS 1,000 ML IV SCH (04:33)
[2022-04-15] MEDS: DOCUSATE SODIUM 100 MG CAPSULE PO SCH (08:33)
[2022-04-15] MEDS: GABAPENTIN 300 MG CAPSULE PO SCH ×2 (08:33→12:27)
[2022-04-15] MEDS: OXYBUTYNIN XL 10 MG TABLET PO SCH (08:33)
[2022-04-15] MEDS: PANTOPRAZOLE 40 MG TABLET PO SCH (08:33)
[2022-04-15] MEDS: DIAZEPAM 5 MG TABLET PO SCH (08:33)
[2022-04-15] MEDS: ACETAMINOPHEN 325 MG TABLET PO PRN (08:34)
[2022-04-15] MEDS: DULoxetine 30 MG CAPSULE PO SCH (08:36)
[2022-04-15] MEDS ORDERED: LORATADINE 10 MG TABLET PO SCH (09:00)
[2022-04-15] MEDS ORDERED: hydrALAZINE 25 MG TABLET PO ONE (15:30)
[2022-04-15] MEDS ORDERED: BACLOFEN 10 MG TABLET PO ONE (15:30)
[2022-04-15 15:55] VITALS: BP 175/93
== END 2022-04-15 15:42 | disposition home health service (06) ==
LOC: EDUNIT# → EDBD → N.ED 22:37 → N.EDINP 22:37 → SUATTDRO 04-14 02:39 → N.3E 04-14 03:29
PROVIDERS: ADMIT Family Medicine; ATTEND Internal Medicine

== ENCOUNTER 2022-06-12 22:32 | Inpatient (IN) ==
[2022-06-12] MEDS ORDERED: SODIUM CHLORIDE 0.9% 1,000 ML IV STA (22:46)
[2022-06-13 00:36] LABS: Basophils % 0.1 % (0.0-0.8); Eosinophils % 0.1 % (0.00-10.9); Hematocrit 49.7 VOL% (42.0-52.0); Hemoglobin 16.6 GM/DL (14.0-18.0); Immature Granulocytes % 0.4 %; Immature Granulocytes Absolute 0.05 #; Lymphocytes # 0.8 10*3/uL (1.4-4.0); Lymphocytes % 5.7 % (21.2-54.2); Mean Corpuscular HGB Conc 33.4 GM/DL (32-36); Mean Corpuscular Volume 91.2 FL (87-102); Mean Platelet Volume 13.4 FL (9.6-12.0); Monocytes # 1.3 10*3/uL (0.11-0.8); Monocytes % 9.2 % (1.7-12.7); Neutrophils % 84.5 % (38.7-73.9); Platelet Count 115 T/CUMM (130-400); Red Blood Count 5.45 MC/CUMM (3.8-5.5); Red Cell Distribution Width 13.3 % (9.3-17.3); White Blood Count 13.7 T/CUMM (4-12)
[2022-06-13 00:43] LABS: Albumin 3.4 G/DL (3.4-5.0); Bilirubin,Total 0.4 MG/DL (0.20-1.00); Calcium 8.5 MG/DL (8.5-10.1); Osmolality,Calculated 280.5 MOS/KG (273-304); Potassium 4.6 MMOL/L (3.5-5.1); Total Protein 7.5 G/DL (6.4-8.2)
[2022-06-13 01:32] LABS: Bilirubin,Urine Negative (Negative); Blood, Urine Large mg/dL (Negative); Glucose,Urine (UA) Negative (Negative); Ketones,Urine Negative (Negative); Nitrite,Urine Positive (Negative); Protein,Urine 100 mg/dL (Negative); Urine Appearance CLOUDY (Clear); Urine Color Yellow (Yellow); Urine Urobilinogen 0.2 eU/dL (<2.0); Urine pH 5.5 (4.5-8.0)
[2022-06-13] MEDS ORDERED: cefTRIAXone 1,000 MG in SODIUM CHLORIDE 0.9% 100 ML IV STA (01:34)
[2022-06-13] MEDS ORDERED: SODIUM CHLORIDE 0.9% 500 ML IV STA (01:37)
[2022-06-13] MEDS ORDERED: GLUCAGON 1 MG VIAL IM PRN (01:40)
[2022-06-13] MEDS ORDERED: ONDANSETRON 4 MG/2 ML VIAL IV PRN (01:41)
[2022-06-13] MEDS ORDERED: ACETAMINOPHEN 325 MG TABLET PO PRN (01:41)
[2022-06-13] MEDS ORDERED: SIMETHICONE CHEW 125 MG TABLET PO PRN (01:41)
[2022-06-13] MEDS ORDERED: DEXTROSE 10% 250 ML BAG IV PRN (01:50)
[2022-06-13] MEDS: SODIUM CHLORIDE 0.45% 1,000 ML IV SCH ×3 (02:45→22:02)
[2022-06-13 04:22] LABS: Basophils % 0.3 % (0.0-0.8); Eosinophils % 0.1 % (0.00-10.9); Hematocrit 47.2 VOL% (42.0-52.0); Hemoglobin 15.6 GM/DL (14.0-18.0); Immature Granulocytes % 0.4 %; Immature Granulocytes Absolute 0.04 #; Lymphocytes # 1.1 10*3/uL (1.4-4.0); Lymphocytes % 10.5 % (21.2-54.2); Mean Corpuscular HGB Conc 33.1 GM/DL (32-36); Mean Corpuscular Volume 90.1 FL (87-102); Monocytes # 0.9 10*3/uL (0.11-0.8); Monocytes % 8.4 % (1.7-12.7); Neutrophils % 80.3 % (38.7-73.9); Platelet Count 119 T/CUMM (130-400); Red Blood Count 5.24 MC/CUMM (3.8-5.5); Red Cell Distribution Width 13.3 % (9.3-17.3); White Blood Count 10.7 T/CUMM (4-12)
[2022-06-13 04:42] LABS: Calcium 8.7 MG/DL (8.5-10.1); Osmolality,Calculated 284.3 MOS/KG (273-304); Potassium 4.1 MMOL/L (3.5-5.1)
[2022-06-13] MEDS: DOCUSATE SODIUM 100 MG CAPSULE PO SCH ×3 (09:43→22:00)
[2022-06-13] MEDS: PANTOPRAZOLE 40 MG TABLET PO SCH (09:43)
[2022-06-13] MEDS: ENOXAPARIN 40 MG/0.4 ML SYRINGE SUBCUT SCH (09:43)
[2022-06-13] MEDS: LACTATED RINGERS 1,000 ML IV SCH ×2 (09:44→23:18)
[2022-06-13] MEDS: INSULIN REGULAR 100 UNIT/ML SUBCUT SCH ×4 (09:56→22:01)
[2022-06-13] MEDS ORDERED: ENOXAPARIN 120 MG/0.8 ML SYRINGE SUBCUT ONE (10:20)
[2022-06-13] MEDS ORDERED: ENOXAPARIN 80 MG/0.8 ML SYRINGE SUBCUT ONE (10:32)
[2022-06-13] MEDS ORDERED: ZINC OXIDE PASTE 113 GM TUBE TOP PRN (12:42)
[2022-06-13] MEDS ORDERED: SODIUM PHOSPHATE ENEMA 133 ML BOTTLE RECTAL PRN (14:00)
[2022-06-13] MEDS ORDERED: SIMVASTATIN 40 MG TABLET PO SCH (21:00)
[2022-06-13] MEDS: tiZANidine 4 MG TABLET PO SCH (21:52)
[2022-06-13] MEDS: QUEtiapine 25 MG TABLET PO SCH (21:52)
[2022-06-13] MEDS: BACLOFEN 10 MG TABLET PO SCH (21:52)
[2022-06-13] MEDS: DIAZEPAM 5 MG TABLET PO SCH (21:52)
[2022-06-13] MEDS: GABAPENTIN 300 MG CAPSULE PO SCH (21:53)
[2022-06-13] MEDS: DIVALPROEX ER 250 MG TABLET PO SCH (21:53)
[2022-06-14 05:16] LABS: Basophils % 0.3 % (0.0-0.8); Eosinophils # 0.1 10*3/uL (0.0-0.87); Eosinophils % 1.5 % (0.00-10.9); Hematocrit 38.2 VOL% (42.0-52.0); Hemoglobin 12.5 GM/DL (14.0-18.0); Immature Granulocytes % 0.3 %; Immature Granulocytes Absolute 0.02 #; Lymphocytes # 2.4 10*3/uL (1.4-4.0); Lymphocytes % 37.1 % (21.2-54.2); Mean Corpuscular HGB Conc 32.7 GM/DL (32-36); Mean Corpuscular Volume 91.8 FL (87-102); Mean Platelet Volume 12.9 FL (9.6-12.0); Monocytes # 0.6 10*3/uL (0.11-0.8); Monocytes % 8.6 % (1.7-12.7); Neutrophils % 52.2 % (38.7-73.9); Platelet Count 90 T/CUMM (130-400); Red Blood Count 4.16 MC/CUMM (3.8-5.5); Red Cell Distribution Width 14.1 % (9.3-17.3); White Blood Count 6.5 T/CUMM (4-12)
[2022-06-14 05:25] LABS: Calcium 8.4 MG/DL (8.5-10.1); Osmolality,Calculated 281.3 MOS/KG (273-304); Potassium 3.9 MMOL/L (3.5-5.1)
[2022-06-14] MEDS: INSULIN REGULAR 100 UNIT/ML SUBCUT SCH ×3 (08:24→16:09)
[2022-06-14] MEDS: ASPIRIN EC 81 MG TABLET PO SCH (08:54)
[2022-06-14] MEDS: DULoxetine 30 MG CAPSULE PO SCH (08:54)
[2022-06-14] MEDS: OXYBUTYNIN XL 10 MG TABLET PO SCH (08:54)
[2022-06-14] MEDS: BACLOFEN 10 MG TABLET PO SCH ×4 (08:55→21:00)
[2022-06-14] MEDS: DOCUSATE SODIUM 100 MG CAPSULE PO SCH ×3 (08:55→21:00)
[2022-06-14] MEDS: GABAPENTIN 300 MG CAPSULE PO SCH ×4 (08:55→21:00)
[2022-06-14] MEDS: PANTOPRAZOLE 40 MG TABLET PO SCH (08:55)
[2022-06-14] MEDS: ENOXAPARIN 40 MG/0.4 ML SYRINGE SUBCUT SCH (08:56)
[2022-06-14] MEDS: LORATADINE 10 MG TABLET PO SCH (08:56)
[2022-06-14] MEDS: DIAZEPAM 5 MG TABLET PO SCH ×2 (08:56→21:00)
[2022-06-14] MEDS: tiZANidine 4 MG TABLET PO SCH ×4 (08:57→21:01)
[2022-06-14] MEDS: SODIUM CHLORIDE 0.45% 1,000 ML IV SCH (11:42)
[2022-06-14] MEDS: LACTATED RINGERS 1,000 ML IV SCH (11:46)
[2022-06-14] MEDS: cefTRIAXone 1,000 MG in SODIUM CHLORIDE 0.9% 100 ML IV SCH (20:59)
[2022-06-14] MEDS: DIVALPROEX ER 250 MG TABLET PO SCH (21:00)
[2022-06-14] MEDS: SIMVASTATIN 10 MG TABLET PO SCH (21:00)
[2022-06-14] MEDS: QUEtiapine 25 MG TABLET PO SCH (21:01)
[2022-06-15] MEDS: DOCUSATE SODIUM 100 MG CAPSULE PO SCH ×5 (01:06→23:21)
[2022-06-15] MEDS: INSULIN REGULAR 100 UNIT/ML SUBCUT SCH ×5 (01:06→23:22)
[2022-06-15] MEDS: LACTATED RINGERS 1,000 ML IV SCH (01:06)
[2022-06-15 04:52] LABS: Basophils % 0.6 % (0.0-0.8); Eosinophils # 0.1 10*3/uL (0.0-0.87); Eosinophils % 2.1 % (0.00-10.9); Hematocrit 40.6 VOL% (42.0-52.0); Hemoglobin 13.3 GM/DL (14.0-18.0); Immature Granulocytes % 0.6 %; Immature Granulocytes Absolute 0.04 #; Lymphocytes # 2.6 10*3/uL (1.4-4.0); Mean Corpuscular HGB Conc 32.8 GM/DL (32-36); Mean Corpuscular Volume 91.9 FL (87-102); Mean Platelet Volume 12.7 FL (9.6-12.0); Monocytes # 0.6 10*3/uL (0.11-0.8); Monocytes % 9.5 % (1.7-12.7); Neutrophils % 48.2 % (38.7-73.9); Platelet Count 101 T/CUMM (130-400); Red Blood Count 4.42 MC/CUMM (3.8-5.5); Red Cell Distribution Width 13.8 % (9.3-17.3); White Blood Count 6.6 T/CUMM (4-12)
[2022-06-15 05:09] LABS: Calcium 9.1 MG/DL (8.5-10.1); Osmolality,Calculated 282.1 MOS/KG (273-304); Potassium 3.8 MMOL/L (3.5-5.1)
[2022-06-15] MEDS: ENOXAPARIN 40 MG/0.4 ML SYRINGE SUBCUT SCH (08:42)
[2022-06-15] MEDS: GABAPENTIN 300 MG CAPSULE PO SCH ×4 (08:43→21:04)
[2022-06-15] MEDS: amLODIPine 10 MG TABLET PO SCH (08:44)
[2022-06-15] MEDS: LORATADINE 10 MG TABLET PO SCH (08:44)
[2022-06-15] MEDS: PANTOPRAZOLE 40 MG TABLET PO SCH (08:44)
[2022-06-15] MEDS: BACLOFEN 10 MG TABLET PO SCH ×4 (08:45→21:04)
[2022-06-15] MEDS: DULoxetine 30 MG CAPSULE PO SCH (08:45)
[2022-06-15] MEDS: OXYBUTYNIN XL 10 MG TABLET PO SCH (08:45)
[2022-06-15] MEDS: tiZANidine 4 MG TABLET PO SCH ×4 (08:45→21:04)
[2022-06-15] MEDS: DIAZEPAM 5 MG TABLET PO SCH ×2 (08:45→21:04)
[2022-06-15] MEDS: ASPIRIN EC 81 MG TABLET PO SCH (08:46)
[2022-06-15] MEDS ORDERED: amLODIPine 5 MG TABLET PO SCH (09:00)
[2022-06-15] MEDS: DIVALPROEX ER 250 MG TABLET PO SCH (21:03)
[2022-06-15] MEDS: QUEtiapine 25 MG TABLET PO SCH (21:04)
[2022-06-15] MEDS: cefTRIAXone 1,000 MG in SODIUM CHLORIDE 0.9% 100 ML IV SCH (21:05)
[2022-06-15] MEDS: SIMVASTATIN 10 MG TABLET PO SCH (21:05)
[2022-06-16 05:22] LABS: Basophils % 0.4 % (0.0-0.8); Eosinophils # 0.2 10*3/uL (0.0-0.87); Eosinophils % 2.2 % (0.00-10.9); Hematocrit 40.9 VOL% (42.0-52.0); Hemoglobin 13.7 GM/DL (14.0-18.0); Immature Granulocytes % 0.4 %; Immature Granulocytes Absolute 0.03 #; Lymphocytes # 2.1 10*3/uL (1.4-4.0); Lymphocytes % 29.9 % (21.2-54.2); Mean Corpuscular HGB Conc 33.5 GM/DL (32-36); Mean Corpuscular Volume 90.9 FL (87-102); Mean Platelet Volume 12.4 FL (9.6-12.0); Monocytes # 0.7 10*3/uL (0.11-0.8); Monocytes % 9.4 % (1.7-12.7); Neutrophils % 57.7 % (38.7-73.9); Platelet Count 100 T/CUMM (130-400); Red Cell Distribution Width 13.6 % (9.3-17.3); White Blood Count 6.9 T/CUMM (4-12)
[2022-06-16 05:33] LABS: Calcium 9.1 MG/DL (8.5-10.1); Osmolality,Calculated 279.4 MOS/KG (273-304); Potassium 3.7 MMOL/L (3.5-5.1)
[2022-06-16] MEDS: OXYBUTYNIN XL 10 MG TABLET PO SCH (08:16)
[2022-06-16] MEDS: DOCUSATE SODIUM 100 MG CAPSULE PO SCH ×2 (08:17)
[2022-06-16] MEDS: DULoxetine 30 MG CAPSULE PO SCH (08:17)
[2022-06-16] MEDS: tiZANidine 4 MG TABLET PO SCH ×2 (08:18→13:54)
[2022-06-16] MEDS: BACLOFEN 10 MG TABLET PO SCH ×2 (08:18→13:52)
[2022-06-16] MEDS: LORATADINE 10 MG TABLET PO SCH (08:18)
[2022-06-16] MEDS: amLODIPine 10 MG TABLET PO SCH (08:18)
[2022-06-16] MEDS: GABAPENTIN 300 MG CAPSULE PO SCH ×2 (08:18→13:52)
[2022-06-16] MEDS: DIAZEPAM 5 MG TABLET PO SCH (08:19)
[2022-06-16] MEDS: ASPIRIN EC 81 MG TABLET PO SCH (08:19)
[2022-06-16] MEDS: PANTOPRAZOLE 40 MG TABLET PO SCH (08:19)
[2022-06-16] MEDS: ENOXAPARIN 40 MG/0.4 ML SYRINGE SUBCUT SCH (08:20)
[2022-06-16] MEDS: INSULIN REGULAR 100 UNIT/ML SUBCUT SCH ×2 (08:20→14:05)
[2022-06-16 16:05] VITALS: BP 125/79
== END 2022-06-16 15:53 | disposition home health service (06) | DRG 690 ==
LOC: EDBD → EDUNIT# → N.ED 22:32 → N.EDINP 06-13 01:40 → SUATTDRO 06-13 01:40 → N.TELEN 06-13 03:10
PROVIDERS: ADMIT Internal Medicine; ATTEND Emergency Medicine

== ENCOUNTER 2022-11-24 11:15 | Inpatient (IN) ==
[2022-11-24 12:20] LABS: Basophils % 0.3 % (0.0-0.8); Eosinophils # 0.1 10*3/uL (0.0-0.87); Eosinophils % 0.5 % (0.00-10.9); Hematocrit 48.3 VOL% (42.0-52.0); Hemoglobin 16.1 GM/DL (14.0-18.0); Immature Granulocytes % 0.4 %; Immature Granulocytes Absolute 0.06 #; Lymphocytes # 2.4 10*3/uL (1.4-4.0); Lymphocytes % 15.9 % (21.2-54.2); Mean Corpuscular HGB Conc 33.3 GM/DL (32-36); Mean Corpuscular Volume 87.7 FL (87-102); Mean Platelet Volume 11.3 FL (9.6-12.0); Monocytes # 1.2 10*3/uL (0.11-0.8); Monocytes % 8.2 % (1.7-12.7); Neutrophils % 74.7 % (38.7-73.9); Platelet Count 249 T/CUMM (130-400); Red Blood Count 5.51 MC/CUMM (3.8-5.5); Red Cell Distribution Width 13.4 % (9.3-17.3); White Blood Count 15.1 T/CUMM (4-12)
[2022-11-24 12:37] LABS: INR 1.1; PT Patient Result 12.4 SECS (10.1-12.1); Partial Thromboplastin Time 31.6 SECS (23.7-32.9)
[2022-11-24 12:42] LABS: Albumin 3.7 G/DL (3.4-5.0); Bilirubin,Total 0.5 MG/DL (0.20-1.00); Calcium 10.1 MG/DL (8.5-10.1); Potassium 4.1 MMOL/L (3.5-5.1)
[2022-11-24] MEDS ORDERED: SODIUM CHLORIDE 0.9% 1,000 ML IV STA (13:22)
[2022-11-24] MEDS ORDERED: MEROPENEM 1,000 MG in SODIUM CHLORIDE 0.9% 100 ML IV STA ×2 (13:36→13:43)
[2022-11-24] MEDS ORDERED: BISACODYL 5 MG TABLET PO PRN (15:28)
[2022-11-24] MEDS ORDERED: ONDANSETRON 4 MG/2 ML VIAL IV PRN (15:28)
[2022-11-24] MEDS ORDERED: VANCOMYCIN INJ 1,000 MG in SODIUM CHLORIDE 0.9% 250 ML IV ONE (15:34)
[2022-11-24] MEDS: SODIUM CHLORIDE 0.9% 1,000 ML IV SCH (16:12)
[2022-11-24] MEDS: PIPERACILLIN/TAZOBACTAM 3,375 MG in SODIUM CHLORIDE 0.9% 100 ML IV SCH (20:45)
[2022-11-25] MEDS: VANCOMYCIN INJ 1,500 MG in SODIUM CHLORIDE 0.9% 500 ML IV SCH ×2 (01:00→12:06)
[2022-11-25] MEDS: SODIUM CHLORIDE 0.9% 1,000 ML IV SCH ×3 (01:11→16:50)
[2022-11-25 05:26] LABS: Basophils % 0.4 % (0.0-0.8); Eosinophils # 0.1 10*3/uL (0.0-0.87); Eosinophils % 0.6 % (0.00-10.9); Hematocrit 45.9 VOL% (42.0-52.0); Hemoglobin 14.9 GM/DL (14.0-18.0); Immature Granulocytes % 0.5 %; Immature Granulocytes Absolute 0.06 #; Lymphocytes # 1.5 10*3/uL (1.4-4.0); Lymphocytes % 12.9 % (21.2-54.2); Mean Corpuscular HGB Conc 32.5 GM/DL (32-36); Mean Corpuscular Volume 89.3 FL (87-102); Mean Platelet Volume 11.5 FL (9.6-12.0); Monocytes # 0.8 10*3/uL (0.11-0.8); Monocytes % 6.9 % (1.7-12.7); Neutrophils % 78.7 % (38.7-73.9); Platelet Count 204 T/CUMM (130-400); Red Blood Count 5.14 MC/CUMM (3.8-5.5); Red Cell Distribution Width 13.7 % (9.3-17.3); White Blood Count 11.2 T/CUMM (4-12)
[2022-11-25 05:36] LABS: Calcium 9.2 MG/DL (8.5-10.1); Potassium 3.8 MMOL/L (3.5-5.1)
[2022-11-25 06:48] LABS: Platelet Estimate Normal
[2022-11-25] MEDS: PIPERACILLIN/TAZOBACTAM 3,375 MG in SODIUM CHLORIDE 0.9% 100 ML IV SCH ×2 (07:33→16:00)
[2022-11-25] MEDS: PANTOPRAZOLE 40 MG TABLET PO SCH (09:16)
[2022-11-25] MEDS: ASPIRIN EC 81 MG TABLET PO SCH (09:16)
[2022-11-25] MEDS: GABAPENTIN 300 MG CAPSULE PO SCH ×4 (09:16→23:58)
[2022-11-25] MEDS: ATORVASTATIN 40 MG TABLET PO SCH (09:16)
[2022-11-25] MEDS: amLODIPine 10 MG TABLET PO SCH (09:17)
[2022-11-25] MEDS ORDERED: CYCLOBENZAPRINE 10 MG TABLET PO PRN (09:18)
[2022-11-25] MEDS ORDERED: CYCLOBENZAPRINE 10 MG TABLET PO STA (09:18)
[2022-11-25] MEDS ORDERED: BISACODYL 10 MG SUPP RECTAL PRN (09:19)
[2022-11-25] MEDS: OXYBUTYNIN XL 10 MG TABLET PO SCH (10:44)
[2022-11-25] MEDS: LORATADINE 10 MG TABLET PO SCH (12:06)
[2022-11-25 12:43] LABS: Mucus,Urine Occasional /LPF (Occasional)
[2022-11-25 12:44] LABS: Glucose,Urine (UA) Negative (Negative); Protein,Urine Negative (Negative); Urine Appearance HAZY (Clear); Urine Color Yellow (Yellow)
[2022-11-25 12:45] LABS: Bilirubin,Urine Negative (Negative); Blood, Urine Trace mg/dL (Negative); Ketones,Urine Negative (Negative); Nitrite,Urine Positive (Negative); Urine Urobilinogen 0.2 eU/dL (<2.0)
[2022-11-25] MEDS ORDERED: BACLOFEN 10 MG TABLET PO SCH (21:45)
[2022-11-25] MEDS ORDERED: IBUPROFEN 100 MG/5 ML UDCUP PO PRN (22:08)
[2022-11-25] MEDS: DIVALPROEX ER 250 MG TABLET PO SCH (23:57)
[2022-11-25] MEDS: LURASIDONE 40 MG TABLET PO SCH (23:57)
[2022-11-25] MEDS: SIMVASTATIN 10 MG TABLET PO SCH (23:58)
[2022-11-25] MEDS: BACLOFEN 10 MG TABLET PO SCH (23:58)
[2022-11-25] MEDS: DIAZEPAM 5 MG TABLET PO SCH (23:58)
[2022-11-25] MEDS: QUEtiapine 25 MG TABLET PO SCH (23:58)
[2022-11-25] MEDS: DOCUSATE SODIUM 100 MG CAPSULE PO SCH (23:59)
[2022-11-26] MEDS: PIPERACILLIN/TAZOBACTAM 3,375 MG in SODIUM CHLORIDE 0.9% 100 ML IV SCH ×4 (00:01→21:37)
[2022-11-26] MEDS: PSYLLIUM POWDER 3.7 GM/PACK PO SCH ×3 (00:28→22:15)
[2022-11-26] MEDS: VANCOMYCIN INJ 1,500 MG in SODIUM CHLORIDE 0.9% 500 ML IV SCH ×2 (05:04→18:09)
[2022-11-26 06:09] LABS: Basophils % 0.3 % (0.0-0.8); Eosinophils # 0.1 10*3/uL (0.0-0.87); Eosinophils % 0.7 % (0.00-10.9); Hematocrit 42.7 VOL% (42.0-52.0); Immature Granulocytes % 0.3 %; Immature Granulocytes Absolute 0.03 #; Lymphocytes # 1.3 10*3/uL (1.4-4.0); Lymphocytes % 12.6 % (21.2-54.2); Mean Corpuscular HGB Conc 32.8 GM/DL (32-36); Mean Corpuscular Volume 90.7 FL (87-102); Mean Platelet Volume 12.1 FL (9.6-12.0); Monocytes % 9.6 % (1.7-12.7); Neutrophils % 76.5 % (38.7-73.9); Platelet Count 154 T/CUMM (130-400); Red Blood Count 4.71 MC/CUMM (3.8-5.5); Red Cell Distribution Width 13.7 % (9.3-17.3); White Blood Count 9.9 T/CUMM (4-12)
[2022-11-26 06:26] LABS: Calcium 9.1 MG/DL (8.5-10.1); Osmolality,Calculated 281.3 MOS/KG (273-304); Potassium 3.4 MMOL/L (3.5-5.1); Risk Ratio 3.71; VLDL Cholesterol 19.4 MG/DL
[2022-11-26] MEDS: OXYBUTYNIN XL 10 MG TABLET PO SCH (14:40)
[2022-11-26] MEDS: DOCUSATE SODIUM 100 MG CAPSULE PO SCH ×2 (14:40→22:14)
[2022-11-26] MEDS: ASPIRIN EC 81 MG TABLET PO SCH (14:40)
[2022-11-26] MEDS: POLYETHYLENE GLYCOL POWDER 17 GM PACK PO SCH (14:40)
[2022-11-26] MEDS: DULoxetine 30 MG CAPSULE PO SCH (14:40)
[2022-11-26] MEDS: LORATADINE 10 MG TABLET PO SCH (14:40)
[2022-11-26] MEDS: BACLOFEN 10 MG TABLET PO SCH ×4 (14:40→22:15)
[2022-11-26] MEDS: ATORVASTATIN 40 MG TABLET PO SCH (14:40)
[2022-11-26] MEDS: MULTIVITAMIN (CENTRUM) TABLET PO SCH (14:40)
[2022-11-26] MEDS: GABAPENTIN 300 MG CAPSULE PO SCH ×4 (14:40→22:15)
[2022-11-26] MEDS: DIAZEPAM 5 MG TABLET PO SCH ×2 (14:41→22:15)
[2022-11-26] MEDS: tiZANidine 4 MG TABLET PO SCH ×4 (14:41→22:15)
[2022-11-26] MEDS: PANTOPRAZOLE 40 MG TABLET PO SCH (14:41)
[2022-11-26] MEDS: amLODIPine 10 MG TABLET PO SCH (14:41)
[2022-11-26] MEDS: SODIUM CHLORIDE 0.9% 1,000 ML IV SCH (21:40)
[2022-11-26] MEDS: DIVALPROEX ER 250 MG TABLET PO SCH (22:15)
[2022-11-26] MEDS: QUEtiapine 25 MG TABLET PO SCH (22:15)
[2022-11-26] MEDS: LURASIDONE 40 MG TABLET PO SCH (22:15)
[2022-11-26] MEDS: SIMVASTATIN 10 MG TABLET PO SCH (22:16)
[2022-11-27] MEDS: VANCOMYCIN INJ 1,500 MG in SODIUM CHLORIDE 0.9% 500 ML IV SCH ×2 (04:52→18:30)
[2022-11-27 05:01] LABS: Basophils % 0.4 % (0.0-0.8); Eosinophils # 0.1 10*3/uL (0.0-0.87); Eosinophils % 0.4 % (0.00-10.9); Hematocrit 43.2 VOL% (42.0-52.0); Hemoglobin 13.8 GM/DL (14.0-18.0); Immature Granulocytes % 0.4 %; Immature Granulocytes Absolute 0.04 #; Lymphocytes # 1.5 10*3/uL (1.4-4.0); Lymphocytes % 13.3 % (21.2-54.2); Mean Corpuscular HGB Conc 31.9 GM/DL (32-36); Mean Corpuscular Volume 91.7 FL (87-102); Mean Platelet Volume 11.6 FL (9.6-12.0); Monocytes # 1.1 10*3/uL (0.11-0.8); Monocytes % 9.7 % (1.7-12.7); Neutrophils % 75.8 % (38.7-73.9); Platelet Count 152 T/CUMM (130-400); Red Blood Count 4.71 MC/CUMM (3.8-5.5); Red Cell Distribution Width 13.8 % (9.3-17.3); White Blood Count 11.3 T/CUMM (4-12)
[2022-11-27 05:23] LABS: Osmolality,Calculated 283.8 MOS/KG (273-304); Potassium 3.4 MMOL/L (3.5-5.1)
[2022-11-27] MEDS: PIPERACILLIN/TAZOBACTAM 3,375 MG in SODIUM CHLORIDE 0.9% 100 ML IV SCH ×3 (06:47→20:44)
[2022-11-27] MEDS ORDERED: POTASSIUM CHLORIDE 20 MEQ TABLET PO ONE (08:19)
[2022-11-27] MEDS ORDERED: MIDAZOLAM 2 MG/2 ML VIAL IV ONE (10:02)
[2022-11-27] MEDS ORDERED: fentaNYL 100 MCG/2 ML VIAL IV ONE (10:02)
[2022-11-27] MEDS: OXYBUTYNIN XL 10 MG TABLET PO SCH (11:17)
[2022-11-27] MEDS: MULTIVITAMIN (CENTRUM) TABLET PO SCH (11:17)
[2022-11-27] MEDS: DULoxetine 30 MG CAPSULE PO SCH (11:17)
[2022-11-27] MEDS: BACLOFEN 10 MG TABLET PO SCH ×4 (11:17→20:43)
[2022-11-27] MEDS: DOCUSATE SODIUM 100 MG CAPSULE PO SCH ×2 (11:17→20:41)
[2022-11-27] MEDS: LORATADINE 10 MG TABLET PO SCH (11:17)
[2022-11-27] MEDS: ASPIRIN EC 81 MG TABLET PO SCH (11:17)
[2022-11-27] MEDS: PSYLLIUM POWDER 3.7 GM/PACK PO SCH ×2 (11:17→21:46)
[2022-11-27] MEDS: DIAZEPAM 5 MG TABLET PO SCH ×3 (11:18→20:42)
[2022-11-27] MEDS: tiZANidine 4 MG TABLET PO SCH ×4 (11:18→20:44)
[2022-11-27] MEDS: amLODIPine 10 MG TABLET PO SCH (11:18)
[2022-11-27] MEDS: ATORVASTATIN 40 MG TABLET PO SCH (11:18)
[2022-11-27] MEDS: PANTOPRAZOLE 40 MG TABLET PO SCH (11:18)
[2022-11-27] MEDS: GABAPENTIN 300 MG CAPSULE PO SCH ×4 (11:18→20:43)
[2022-11-27] MEDS: POLYETHYLENE GLYCOL POWDER 17 GM PACK PO SCH (11:18)
[2022-11-27] MEDS: LURASIDONE 40 MG TABLET PO SCH (20:42)
[2022-11-27] MEDS: DIVALPROEX ER 250 MG TABLET PO SCH (20:42)
[2022-11-27] MEDS: QUEtiapine 25 MG TABLET PO SCH (20:43)
[2022-11-27] MEDS: SIMVASTATIN 10 MG TABLET PO SCH (20:43)
[2022-11-28] MEDS: SODIUM CHLORIDE 0.9% 1,000 ML IV SCH (03:07)
[2022-11-28] MEDS: VANCOMYCIN INJ 1,500 MG in SODIUM CHLORIDE 0.9% 500 ML IV SCH (04:42)
[2022-11-28 05:15] LABS: Basophils % 0.2 % (0.0-0.8); Eosinophils % 0.3 % (0.00-10.9); Hemoglobin 11.9 GM/DL (14.0-18.0); Immature Granulocytes % 0.6 %; Immature Granulocytes Absolute 0.07 #; Lymphocytes # 1.6 10*3/uL (1.4-4.0); Lymphocytes % 13.9 % (21.2-54.2); Mean Corpuscular HGB Conc 32.2 GM/DL (32-36); Mean Corpuscular Volume 91.4 FL (87-102); Mean Platelet Volume 11.8 FL (9.6-12.0); Monocytes # 1.2 10*3/uL (0.11-0.8); Monocytes % 11.1 % (1.7-12.7); Neutrophils % 73.9 % (38.7-73.9); Platelet Count 143 T/CUMM (130-400); Red Blood Count 4.05 MC/CUMM (3.8-5.5); Red Cell Distribution Width 13.7 % (9.3-17.3); White Blood Count 11.2 T/CUMM (4-12)
[2022-11-28 05:39] LABS: Calcium 8.5 MG/DL (8.5-10.1); Osmolality,Calculated 283.3 MOS/KG (273-304); Platelet Estimate Adequate; Potassium 3.3 MMOL/L (3.5-5.1)
[2022-11-28 05:40] LABS: Anisocytosis 1+
[2022-11-28] MEDS: PIPERACILLIN/TAZOBACTAM 3,375 MG in SODIUM CHLORIDE 0.9% 100 ML IV SCH ×3 (05:59→12:19)
[2022-11-28] MEDS: MULTIVITAMIN (CENTRUM) TABLET PO SCH (09:53)
[2022-11-28] MEDS: DIAZEPAM 5 MG TABLET PO SCH (09:53)
[2022-11-28] MEDS: tiZANidine 4 MG TABLET PO SCH ×2 (09:53→12:19)
[2022-11-28] MEDS: ATORVASTATIN 40 MG TABLET PO SCH (09:53)
[2022-11-28] MEDS: GABAPENTIN 300 MG CAPSULE PO SCH ×2 (09:53→12:19)
[2022-11-28] MEDS: LORATADINE 10 MG TABLET PO SCH (09:53)
[2022-11-28] MEDS: ASPIRIN EC 81 MG TABLET PO SCH (09:53)
[2022-11-28] MEDS: POLYETHYLENE GLYCOL POWDER 17 GM PACK PO SCH (09:53)
[2022-11-28] MEDS: DOCUSATE SODIUM 100 MG CAPSULE PO SCH (09:54)
[2022-11-28] MEDS: PANTOPRAZOLE 40 MG TABLET PO SCH (09:54)
[2022-11-28] MEDS: BACLOFEN 10 MG TABLET PO SCH ×2 (09:54→12:19)
[2022-11-28] MEDS: amLODIPine 10 MG TABLET PO SCH (09:54)
[2022-11-28] MEDS: DULoxetine 30 MG CAPSULE PO SCH (09:54)
[2022-11-28] MEDS: OXYBUTYNIN XL 10 MG TABLET PO SCH (09:54)
[2022-11-28] MEDS: PSYLLIUM POWDER 3.7 GM/PACK PO SCH (09:55)
[2022-11-28 12:35] VITALS: BP 143/115
== END 2022-11-28 15:30 | disposition home health service (06) | DRG 982 ==
LOC: N.ED 11:15 → N.EDINP 15:27 → SUATTDRO 15:27 → N.2E 11-25 20:17
PROVIDERS: ADMIT Internal Medicine; ATTEND Internal Medicine